=== PATIENT | female | born 1955 | race Caucasian/White ===

== ENCOUNTER 2024-03-30 10:29 | Outpatient (AMB) | payer OTHER, SELFPAY ==
--- NOTE | 2024-03-30 10:32 | MHC.OFFVIS ---
Vital Signs 03/30/24 10:34 Height 5 ft 4.5 in Weight 170 lb 13.732 oz BMI 28.9 BP 128/82 Blood Pressure Location Lt brachial Position Sitting Pulse 68 Pulse Source Doppler Pulse Oximetry (%) 100 Oxygen Delivery Method Room Air Intake Visit Reasons: sleep apnea Allergies aspirin Allergy (Intermediate, Verified 03/30/24 10:52) Unknown montelukast [From Singulair] Allergy (Intermediate, Verified 03/30/24 10:52) Unknown NSAIDS (Non-Steroidal Anti-Inflamma Allergy (Intermediate, Verified 03/30/24 10:52) Canker Sores prochlorperazine [From Compazine] Allergy (Intermediate, Verified 03/30/24 10:42) Unknown cough syrup with codeine Allergy (Intermediate, Uncoded 03/30/24 10:42) Vomiting HPI HPI sleep apnea: Details: 68-year-old lady, nonsmoker, with underlying history of obstructive sleep apnea diagnosed approximately 20 years prior and treated with a jaw advancement device, now presents for re-evaluation as patient states that she has gained approximately 20 lb since her last sleep study with worsening symptoms. She is also complain of partially treated bronchitic symptoms. 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 [facility] Social History (Updated 03/30/24 @ 10:47 by Noreen Rico [facility]) Patient Tobacco Use Status: Never used Tobacco Review of Systems Const Denies daytime sleepiness, Denies excessive sweating, Denies fatigue, Denies fever(s), Reports lethargy, Reports malaise, Denies night sweats, Denies snoring and Denies weight loss Eyes Denies blurry vision and Denies itchy eyes ENT Denies nasal congestion, Denies post nasal drip, Denies sinus pain, Denies sinus pressure and Denies other ( Thrush) Card Denies chest pain, Denies pedal edema, Denies dyspnea, Denies orthopnea and Denies paroxysmal nocturnal dyspnea Resp Denies cough, Denies hemoptysis, Denies excessive phlegm production, Denies dyspnea, Denies snoring and Denies wheezing GI Denies abdominal pain and Denies heartburn Musc Denies myalgias, Denies arthralgias and Denies joint swelling Skin/Breast Denies rash Neuro Denies memory loss and Denies seizure-like activity Psych Denies abnormal sleep pattern, Denies anxiety and Denies memory loss Endo Denies excessive sweating, Denies fatigue and Denies heat intolerance Santi/Lymph Denies easy bruising Aller/Immun Denies itchy eyes, Denies seasonal rhinorrhea and Denies wheezing Physical Exam Vital Signs: Last Vital Signs Pulse 68 03/30/24 10:34 BP 128/82 03/30/24 10:34 Pulse Ox 100 03/30/24 10:34 Oxygen Delivery Method Room Air 03/30/24 10:34 BMI result Body Mass Index 28.9 Const General: no acute distress and alert Nutritional Appearance: not obese Orientation/consciousness: Other orientation findings ( oriented) HEENT Head: Yes atraumatic Eyes General: appearance normal, both eyes and all related structures Sclerae: sclerae normal EOM: EOMs intact bilaterally Neck Neck: Yes supple Lymphatic: no lymphadenopathy noted Resp Effort & Inspection: normal respiratory effort and no use of accessory muscles Auscultation: clear to auscultation bilaterally Cardio Rate: regular rate Rhythm: regular rhythm Heart sounds: no gallops, no murmurs and no rubs Skin General skin exam: other ( warm) Extrem General: No clubbing, No cyanosis and No edema Assessment & Plan Assessment & Plan (1) Bronchitis: Code(s): J40 - Bronchitis, not specified as acute or chronic Category: Medical Plan: Partial response to initial treatment with Z-Paolo and prednisone course. Will treat with a course of Augmentin. (2) RAFFI (obstructive sleep apnea): Code(s): G47.33 - Obstructive sleep apnea (adult) (pediatric) Category: Medical Plan: Underlying obstructive sleep apnea previously controlled with jaw advancement device, now with worsening symptoms. [place] Sleepiness Scale score of 15. Will obtain home sleep study. Orders: Orders RT home sleep study Today G47.33 - Obstructive sleep apnea (adult) (pediatric) Medications: New amoxicillin-pot clavulanate 875-125 mg 1 tab PO BID 20 tabs 0RF Coding Level of Care Code New Pt Level 4 (83280) Diagnoses Bronchitis J40 RAFFI (obstructive sleep apnea) G47.33
[2024-03-30 10:34] VITALS: BP 128/82; PULSE 68; O2SAT 100; BMI 28.9
--- OUTSIDE RECORDS SUMMARY | 2024-03-30 11:47 | XMS_ITS | Continuity of Care Document ---
Author Organization [facility] Address [address] [place] [phone]- Care Team Providers Care Wire Lather Name Role Phone Polly NAYLOR, Solange Shaver Primary Care Physici an Encounter [facility] Date(s): 02/25/24 - 03/26/24 [facility] [address] [place] [phone]- Encounter Type: Triage Allergies, Adverse Reactions, Alerts Substance Criticality Severity Reaction Reaction Severity Status codeine VOMITING Active Singulair Active Compazine Active Medications Albuterol (Eqv-ProAir HFA) 90 mcg/inh inhalation aerosol 8 Gm, 0 Refill(s), INHALE 2 PUFFS INTO THE LUNGS EVERY 6 HOURS NEEDED (WHEEZING)., 0 Refills, 12/09/23 9:24:00 AM EDT, Partial fill upon patient request if the prescription is for a schedule II opioid drug. Start Date: 12/09/23 Status: Ordered Repeat number: 1 amoxicillin 500 mg oral capsule See Instructions, 1 capsule By Mouth 3 times a day Taken normally prior to Dental Work, 0 Refills, Maintenance, 01/08/24 9:51:00 AM EDT, Partial fill upon patient request if the prescription is for aschedule II opioid drug. Start Date: 01/08/24 Status: Ordered Repeat number: 1 apixaban 5 mg oral tablet 1 tablet = 5 mg, By Mouth, 2 times a day, # 60 tablet, 0 Refills, Maintenance, 12/28/23 12:31:00 AMEDT, Tablet, [facility]/pharmacy #[id number], Partial fill upon patient request if the prescription is for a schedule II opioid drug., 163, cm, 12/27/23 20:59:00 EDT, Height, 75, kg, 12/27/23 22:39:00 EDT, Dry Weight Start Date: 12/28/23 Stop Date: 04/24/24 Status: Ordered Quantity: 60.0 Unit: tablet Repeat number: 1 azelastine 0.05% ophthalmic solution 1 drops, 2 times a day, PRN Allergies in Eyes, 0 Refills, Maintenance, 12/09/23 9:41:00 AM EDT, Partial fill upon patient request if the prescription is for a schedule II opioid drug. Start Date: 12/09/23 Status: Ordered Repeat number: 1 benzonatate 200 mg oral capsule 1 capsule = 200 mg, By Mouth, 3 times a day, PRN as needed for cough, for 7 days, # 21 capsule, 0 Refills, Acute 04/01/24 12:14:00 PM EST, 03/25/24 12:14:00 PM EST, Capsule, [facility]/pharmacy #[id number], Partialfill upon patient request if the prescription is for a schedule II opioid drug., 163, cm, 03/25/24 11:23:00 EST, Height, 75, kg, 03/19/24 14:49:00 EST, Dry Weight Start Date: 03/25/24 Stop Date: 04/01/24 Status: Ordered Quantity: 21.0 Unit: capsule Repeat number: 1 Indication: Acute cough duloxetine 60 mg oral enteric coated capsule 1 capsule = 60 mg, By Mouth, Daily at bedtime, 90 capsule, 0 Refill(s) OTC, 0 Refills, 12/09/23 9:24:00 AM EDT, Partial fill upon patient request if the prescription is for a schedule II opioid drug. Start Date: 12/09/23 Status: Ordered Repeat number: 1 famciclovir 250 mg oral tablet 1 tablet = 250 mg, By Mouth, Daily at bedtime, 180 tablet, 0 Refill(s) Prescribed by Eye DrManuel for Herpes in R eye, 0 Refills, 12/09/23 9:24:00 AM EDT, Partial fill upon patient request if the prescription is for a schedule II opioid drug. Start Date: 12/09/23 Status: Ordered Repeat number: 1 flecainide 50 mg oral tablet 50 mg, 1, tablet, By Mouth, Every 12 hours, # 60 tablet, Refills 6, Tot. Refills 6, Maintenance, 02/25/24 12:04:00 PM EST, Route to Pharmacy Electronically, [facility]/pharmacy #[id number], Partial fill upon patient request if the prescription is for a schedule II opioid drug., 163, cm, 02/11/24 11:19:00 EST, Height, 74.5, kg, 02/11/24 11:19:00 EST, Dry Weight Start Date: 02/25/24 Status: Ordered Quantity: 60.0 Unit: tablet Repeat number: 7 levothyroxine 0.137 mg oral tablet 30 each, 0 Refill(s), TAKE ONE TABLET BY MOUTH EVERY MORNING BEFORE BREAKFAST, 0 Refills, 12/09/23 9:24:00 AM EDT, Partial fill upon patient request if the prescription is for a schedule II opioid drug. Start Date: 12/09/23 Status: Ordered Repeat number: 1 magnesium glycinate = 120 mg, By Mouth, 0 Refills, Maintenance, 12/09/23 9:43:00 AM EDT, Partial fill upon patient request if the prescription is for a schedule II opioid drug. Start Date: 12/09/23 Status: Ordered Repeat number: 1 Metoprolol Succinate ER 25 mg oral tablet, extended release 0.5, tablet, By Mouth, Daily, INSTR:DOSE IS 12.5 MG DAILY, # 15 tablet, Refills 10, Tot. Refills 10, Maintenance, 02/16/24 8:07:00 AM EST, Route to Pharmacy Electronically, [facility]/pharmacy #[id number], 163, cm, 02/11/24 11:19:00 EST, Height, 74.5, kg, 02/11/24 11:19:00 EST, Dry Weight Start Date: 02/16/24 Status: Ordered Quantity: 15.0 Unit: tablet Repeat number: 11 pantoprazole 40 mg oral delayed release tablet 1 tablet = 40 mg, By Mouth, Daily, # 30 tablet, 0 Refills, Maintenance, 02/06/24 6:31:00 AM EST, ECTablet Start Date: 02/06/24 Status: Ordered Quantity: 30.0 Unit: tablet Repeat number: 1 Potassium Citrate By Mouth, 0 Refills, Maintenance, 12/09/23 9:42:00 AM EDT, Partial fill upon patient request if the prescription is for a schedule II opioid drug. Start Date: 12/09/23 Status: Ordered Repeat number: 1 Tylenol Extra Strength 2 tablet, By Mouth, Daily at bedtime, 0 Refills, Maintenance, 12/09/23 9:43:00 AM EDT, Partial fill upon patient request if the prescription is for a schedule II opioid drug. Start Date: 12/09/23 Status: Ordered Repeat number: 1 Xyzal 5 mg oral tablet 1 tablet = 5 mg, By Mouth, Daily before dinner, 0 Refills, Maintenance, 12/09/23 9:42:00 AM EDT, Partial fill upon patient request if the prescription is for a schedule II opioid drug. 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 Unable to tolerate cpap Social History Social History Type Response Smoking Status Never (less than 100 in lifetime) entered on: 10/27/23 Sex Sex Representation Female (finding) Patient Care team information Care Team Personnel Name: Solange Matias NP Position: [facility] PCO Associate Professional Member Role: PCP Address: [address] [place] [address]- Telecom: Care Team Related Persons Name: BERNARDINO KUMAR Insurance Providers Guarantor name: BI KUMAR Health Plan Information #: 1 Payer: MICKEY Member Number: NA Policy Number: NA Group Number: [id number]
--- OUTSIDE RECORDS SUMMARY | 2024-03-30 11:47 | XMS_ITS | Continuity of Care Document ---
Author Organization [facility] Address [address] [place] [phone]- Care Team Providers Care Lip And Gate Builder Name Role Phone Not on Staff, PCP Primary Care Physician Unavail able Encounter [facility] Date(s): 02/15/24 - 03/16/24 [facility] [address] [place] [phone]- Encounter Type: Triage Allergies, Adverse Reactions, Alerts [...] 1 capsule By Mouth 3 times a day, 0 Refills, Maintenance, 01/08/24 9:51:00 AM EDT, Partial fill upon patient request if the prescription is for a schedule II opioid drug. Start Date: 01/08/24 Status: Ordered Repeat number: 1 apixaban 5 mg oral tablet 1 tablet = 5 mg, By Mouth, 2 times a day, # 14 tablet, 0 Refills, Maintenance, 12/28/23 12:31:00 AMEDT, Tablet, [facility]/pharmacy #[id number], Partial fill upon patient request if the prescription is for a schedule II opioid drug., 163, cm, 12/27/23 20:59:00 EDT, Height, 75, kg, 12/27/23 22:39:00 EDT, Dry Weight Start Date: 12/28/23 Stop Date: 01/04/24 Status: Ordered Quantity: 14.0 Unit: tablet Repeat number: 1 azelastine 0.05% ophthalmic solution 1 drops, 2 times a day, 0 Refills, Maintenance, 12/09/23 9:41:00 AM EDT, Partial fill upon patient request if the prescription is for a schedule II opioid drug. Start Date: 12/09/23 Status: Ordered Repeat number: 1 duloxetine 60 mg oral enteric coated capsule 90 capsule, 0 Refill(s), 0 Refills, 12/09/23 9:24:00 AM EDT, Partial fill upon patient request if the prescription is for a schedule II opioid drug. Start Date: 12/09/23 Status: Ordered Repeat number: 1 famciclovir 250 mg oral tablet 180 tablet, 0 Refill(s), 0 Refills, 12/09/23 9:24:00 AM EDT, Partial fill upon patient request if the prescription is for a schedule II opioid drug. Start Date: 12/09/23 Status: Ordered Repeat number: 1 flecainide 50 mg oral tablet 50 mg, 1, tablet, By Mouth, Every 12 hours, # 60 tablet, Refills 6, Tot. Refills 6, Maintenance, 02/25/24 12:04:00 PM EST, Route to Pharmacy Electronically, [facility]/pharmacy #[id number], Partial fill upon patient request if the prescription is for a schedule II opioid drug., 163, cm, 02/11/24 11:19:00 EST, Height, 74.5, kg, 02/11/24 11:19:00 EST, Dry Weight Start Date: 02/25/24 Status: Ordered Quantity: 60.0 Unit: tablet Repeat number: 7 Flonase Allergy Relief 50 mcg/inh nasal spray 1 sprays = 50 mcg, Daily, 0 Refills, Maintenance, 12/09/23 9:42:00 AM EDT, Partial fill upon patientrequest if the prescription is for a schedule II opioid drug. Start Date: 12/09/23 Status: Ordered Repeat number: 1 levothyroxine 0.137 mg oral tablet 30 each, 0 Refill(s), TAKE ONE TABLET BY MOUTH EVERY MORNING BEFORE BREAKFAST, 0 Refills, 12/09/23 9:24:00 AM EDT, Partial fill upon patient request if the prescription is for a schedule II opioid drug. Start Date: 12/09/23 Status: Ordered Repeat number: 1 magnesium glycinate By Mouth, 0 Refills, Maintenance, 12/09/23 9:43:00 [...] 8:07:00 AM EST, Route to Pharmacy Electronically, [facility]/pharmacy #[id number], 163, cm, 02/11/24 11:19:00 EST, [...] Ordered Repeat number: 1 Tylenol Extra Strength By Mouth, Every 6 hours, 0 Refills, Maintenance, 12/09/23 9:43:00 AM EDT, [...] Date: 12/09/23 Status: Ordered Repeat number: 1 Social History Social History Type Response Smoking Status Never (less than 100 in lifetime) entered on: 10/27/23 Sex Sex Representation Female (finding) Patient Care team information Care Team Personnel Name: Not on Staff, PCP Position: S Physician (General Medicine) Member Role: PCP Care Team Related Persons Name: BERNARDINO KUMAR Insurance Providers Guarantor name: BI KUMAR [facility] Plan Information #: 1 Payer: MICKEY Member Number: NA Policy Number: NA Group Number: NA
--- OUTSIDE RECORDS SUMMARY | 2024-03-30 11:48 | XMS_ITS | Clinical Summary ---
Author Organization [facility] Address [address] [place] [address] Phone Care Team Providers Care Hand Miter Operator Name Role Phone [facility] Unavailable [phone] Reason for Visit and Chief Complaint Procedure Plan of Treatment Pending Tests Order Diagnosis Results Due Ordering P rovider Follow Up - Appointment PRN Nondisp fx of lateral malleolus of right fibula, init 07/24/23 Michelle ARITA Last Documented On 4 8:39AM ; [facility] In House X-Rays - X-Rays Ankle, right, 3 views ([id number]) Nondisp fx of lateral malleolus of right fibula, init 07/26/23 Michelle ARITA Last Documented On 4 8:39AM ; [facility] Assessments Includes: Assessments from this encounter No Assessments Recorded Medical Equipment - Implanted Devices Includes: Current Devices No Medical Equipment Recorded Medications Includes: Medications discussed during this encounter and other current Medications Current Medications (continue as prescribed) Tylenol Oral Tablet 05/13/2023 Provider: Diagnosis: Last Documented On 4 8:44AM By John Cee ; [facility] Medications Administered Includes: Administered Medications from this encounter No Administered Medications Recorded Vital Signs Includes: Vital Signs from this encounter Vital Name 07/24/2023 08:16A Blood Pressure Sitting (mmHg) 125/78 Pulse Rate-Sitting (bpm) 72 Temp-Temporal 97 Height (in) 64 Weight (lb) 162 Body Mass Index 27.8 Body Surface Area 1.8 Oxygen Saturation (%) 99 Last Documented: On 07/24/2023 8:16AM ; [facility] Results Includes: Results discussed during this encounter No Results Recorded For Specified Dates History of Present Illness Includes: History of Present Illness from this encounter No History of Present Illness Recorded Social History No Social History Recorded - Smoking Status Unknown Procedures and Surgical History Includes: Procedures from this encounter Procedures Code Diagnosis Performing Provider Service Location Service Date X-Ray Exam Of Ankle, minimum of 3 views (Right) 12826 Nondisp fx of lateral malleolus of right fibula, init Michelle ARITA [facility] 07/24/2023 Last Documented On 4 8:50AM ; [facility] Medical History Includes: Medical History addressed during this encounter No Medical History Recorded Family History Includes: Family History addressed during this encounter No Family History Recorded Review of Systems Includes: Review of Systems from this encounter Chief complaint: Follow-up right distal fibula fracture Date of injury: 05/10/2023 History of present illness: The patient is a 67-year-old female being treated none surgically for a closed nondisplaced right distal fibula fracture Chen A. Patient has been working with physical therapy 1-2 times per week. She reports mild discomfort at the end of the day after prolonged standing. She reports mild stiffness with extreme dorsiflexion. Overall she is very happy with her progress. Denies taking analgesics. She is accompanied today by her . No other complaints at this time. Physical exam: No swelling or ecchymosis about the right ankle. Nontender to palpation throughout the right ankle. 5/5 strength with dorsiflexion and plantarflexion bilateral ankles. No pain with active range of motion. Active range of motion -5 degrees plantarflexion, full dorsiflexion. Skin and neurovascular exams intact. Diagnostic imaging: Radiographic images obtained today of the right ankle 3 views are compared to those from 06/10/2023. There is a nondisplaced distal right fibular fracture Chen A with no change in alignment. Ankle joint is symmetrical in all views. Assessment: 11 weeks status post right nondisplaced distal fibula fracture Chen A Plan: Continue weightbearing as tolerated right lower extremity. Continue PT for range of motion exercises. Continue to wear good supportive shoes. Caution to avoid reinjury. May take [id number] analgesics as needed although not currently taking any. The patient may follow-up as needed. Patient and her understand and agree with the above-stated plan. This case has been discussed with Dr. Ferguson. Mental Status Includes: Mental Status from this encounter No Mental Status Recorded Functional Status Includes: Functional Status from this encounter No Functional Status Recorded Physical Exam Includes: Physical Exam from this encounter Encounters Encounter Provider Location Date Check-In Time Check-Out Time Diagnosis Procedure Michelle ARITA [facility] 8:00AM 8:32AM Insurance Includes: Active Insurance Policies Plan Name Member ID Group # Subscriber Relationship Effect willis Dates 1 - Liliana Gutierrez [id number] Kelsy Webster Self 1 - Unknown Clinical Notes Includes: Clinical Notes from this encounter * Progress note Date Encounter Last Documented by 07/24/2023 Procedure Last documented on 07/24/2023; 8:39 AM, Michelle ARITA; [facility] Physical Findings - Vitals taken 07/24/2023 08:16 am BP-Sitting 125/78 mmHg Pulse Rate-Sitting 72 bpm Temp-Temporal 97 F Height 64 in Weight 162 lbs Body Mass Index 27.8 kg/m2 Body Surface Area 1.8 m2 Oxygen Saturation 99 % Plan StartCited - Nondisp fx of lateral malleolus of right fibula, init Follow Up/Appointment: PRN In House X-Rays/X-Rays: Ankle, right, 3 views ([id number]) EndCited User Defined 4 Chief complaint: Follow-up right distal fibula fracture Date of injury: 05/10/2023 History of present illness: The patient is a 67-year-old female being treated none surgically for a closed nondisplaced right distal fibula fracture Chen A. Patient has been working with physical therapy 1-2 times per week. She reports mild discomfort at the end of the day after prolonged standing. She reports mild stiffness with extreme dorsiflexion. Overall she is very happy with her progress. Denies taking analgesics. She is accompanied today by her . No other complaints at this time. Physical exam: No swelling or ecchymosis about the right ankle. Nontender to palpation throughout the right ankle. 5/5 strength with dorsiflexion and plantarflexion bilateral ankles. No pain with active range of motion. Active range of motion -5 degrees plantarflexion, full dorsiflexion. Skin and neurovascular exams intact. Diagnostic imaging: Radiographic images obtained today of the right ankle 3 views are compared to those from 06/10/2023. There is a nondisplaced distal right fibular fracture Chen A with no change in alignment. Ankle joint is symmetrical in all views. Assessment: 11 weeks status post right nondisplaced distal fibula fracture Chen A Plan: Continue weightbearing as tolerated right lower extremity. Continue PT for range of motion exercises. Continue to wear good supportive shoes. Caution to avoid reinjury. May take [id number] analgesics as needed although not currently taking any. The patient may follow-up as needed. Patient and her understand and agree with the above-stated plan. This case has been discussed with Dr. Ferguson.
--- OUTSIDE RECORDS SUMMARY | 2024-03-30 11:48 | XMS_ITS | Clinical Summary ---
Author Organization [facility] Address [address] [place] [address] Phone Care Team Providers Care Ambulance Officer Name Role Phone [facility] Unavailable Unavailable Reason for Visit and Chief Complaint Procedure Plan of Treatment Pending Tests Order Diagnosis Results Due Ordering P andressa Follow Up - Appointment 1 Month Nondisp fx of lateral malleolus of right fibula, dona 06/10/23 Ajay Rollins MD Last Documented On 9:12AM ; [facility] Assessments Includes: Assessments from this encounter No Assessments Recorded Medical Equipment - Implanted Devices Includes: Current Devices No Medical Equipment Recorded Medications Includes: Medications discussed during this encounter and other current Medications Current Medications (continue as prescribed) Tylenol Oral Tablet 05/13/2023 Provider: Diagnosis: Last Documented On 8:44AM By John Cee ; [facility] Medications Administered Includes: Administered Medications from this encounter No Administered Medications Recorded Vital Signs Includes: Vital Signs from this encounter Vital Name 06/10/2023 09:01A Blood Pressure Sitting (mmHg) 120/64 Pulse Rate-Sitting (bpm) 76 Temp-Temporal 96.9 Height (in) 64 Weight (lb) 162 Body Mass Index 27.8 Body Surface Area 1.8 Oxygen Saturation (%) 97 Last Documented: On 06/10/2023 9:01AM ; [facility] Results Includes: Results discussed during this [...] Of Ankle, minimum of 3 views (Right) [id number] Nondisp fx of lateral malleolus of right fibula, init Ajay Rollins MD [facility] 06/10/2023 Last Documented On 4 8:10AM ; [facility], Medical History Includes: Medical History addressed during this encounter No Medical History Recorded Family History Includes: Family History addressed during this encounter No Family History Recorded Review of Systems Includes: Review of Systems from this encounter CHIEF COMPLAINT Closed nondisplaced distal right fibula fracture (Chen A) HISTORY OF PRESENT ILLNESS The patient is a 67-year-old female. She fell sustaining an injury to her right ankle. X-rays showed a Chen A nondisplaced distal right fibula fracture. She has no tenderness medially. CURRENT MEDICATION - Tylenol Oral Tablet 0 days, 0 refills PHYSICAL FINDINGS - Vitals taken 05/13/2023 08:43 am BP-Sitting 122/70 mmHg Pulse Rate-Sitting 72 bpm Temp-Temporal 97 F Height 64 in Weight 162 lbs Body Mass Index 27.8 kg/m2 Body Surface Area 1.8 m2 Oxygen Saturation 99 % Minimal to no tenderness to palpation over the distal fibula. Good range of motion of the ankle and toes. Warm well-perfused foot. Able to weight-bear out of the boot. IMAGING X-rays were taken of her right ankle in the office today. X-rays show a nondisplaced Chen A distal right fibular fracture. Her ankle joint is symmetrical in all views. IMPRESSION 1. Chen a nondisplaced distal right fibular fracture. 2. Symmetrical ankle joint all views. PLAN - Nondisp fx of lateral malleolus of right fibula, init Follow Up/Appointment: 1 Month Avoid sporting type activities for another month. Follow-up in 1 month.Wean out of the boot into a ankle stirrup Aircast inside of a sneaker. Weightbearing as tolerated.Given a prescription for therapy. Mental Status Includes: Mental Status from this encounter No Mental Status Recorded Functional Status Includes: Functional Status from this encounter No Functional Status Recorded Physical Exam Includes: Physical Exam from this encounter Encounters Encounter Provider Location Date Check-In Time Check-Out Time Diagnosis Procedure Ajay Rollins MD [facility] 06/10/19 24 8:20AM 8:55AM Insurance Includes: Active Insurance Policies Plan Name Member ID Group # Subscriber Relationship Effect willis Dates - Liliana Gutierrez [id number] Kelsy Webster Self 1 - Unknown Clinical Notes Includes: Clinical Notes from this encounter * Progress note Date Encounter Last Documented by 06/10/2023 Procedure Last documented on 06/10/2023; 9:12 AM, Ajay Rollins MD; [facility], Physical Findings - Vitals taken 06/10/2023 09:01 am BP-Sitting 120/64 mmHg Pulse Rate-Sitting 76 bpm Temp-Temporal 96.9 F Height 64 in Weight 162 lbs Body Mass Index 27.8 kg/m2 Body Surface Area 1.8 m2 Oxygen Saturation 97 % Plan StartCited - Nondisp fx of lateral malleolus of right fibula, init Follow Up/Appointment: 1 Month EndCited User Defined 4 CHIEF COMPLAINT Closed nondisplaced distal right fibula fracture (Chen A) HISTORY OF PRESENT ILLNESS The patient is a 67-year-old female. She fell sustaining an injury to her right ankle. X-rays showed a Chen A nondisplaced distal right fibula fracture. She has no tenderness medially. CURRENT MEDICATION - Tylenol Oral Tablet 0 days, 0 refills PHYSICAL FINDINGS - Vitals taken 05/13/2023 08:43 am BP-Sitting 122/70 mmHg Pulse Rate-Sitting 72 bpm Temp-Temporal 97 F Height 64 in Weight 162 lbs Body Mass Index 27.8 kg/m2 Body Surface Area 1.8 m2 Oxygen Saturation 99 % Minimal to no tenderness to palpation over the distal fibula. Good range of motion of the ankle and toes. Warm well-perfused foot. Able to weight-bear out of the boot. IMAGING X-rays were taken of her right ankle in the office today. X-rays show a nondisplaced Chen A distal right fibular fracture. Her ankle joint is symmetrical in all views. IMPRESSION 1. Chen a nondisplaced distal right fibular fracture. 2. Symmetrical ankle joint all views. PLAN - Nondisp fx of lateral malleolus of right fibula, init Follow Up/Appointment: 1 Month Avoid sporting type activities for another month. Follow-up in 1 month.Wean out of the boot into a ankle stirrup Aircast inside of a sneaker. Weightbearing as tolerated.Given a prescription for therapy.
--- OUTSIDE RECORDS SUMMARY | 2024-03-30 11:48 | XMS_ITS ---
Care Plan - [facility] Created on: March 30, 2024 Kelsy Webster : 1955 Sex: Female Author Organization [facility] RONALD Aguilar Address [address] [place] [address] Phone Care Team Providers Care Water Fabricator Operator Name Role Phone [facility] Unavailable Unavailable
--- OUTSIDE RECORDS SUMMARY | 2024-03-30 11:48 | XMS_ITS | Clinical Summary ---
Author Organization [facility] Address [address] [place] [id number] Care Team Providers Care Design/Animation Instructor Name Role Phone Pcp, No Primary Care Provider Unavailabl e Allergies Active Allergy Reactions Criticality Noted Date Comments Prochlorperazine Other (See Comments) 4 Lock jaw Medications Medication Sig Dispensed Refills Start Date End Date Status Misc. Devices Misc CAM Boot Dx: Fibula Fracture Length of need: PRN until follow up 1 each 05/11/2023 Active Social History Tobacco Use Types Packs/Day Years Used Date Smoking Tobacco: Never Assessed Sex and Gender Information Value Date Recorded Sex Assigned at Female 05/10/2023 9:53 PM EST Gender Identity Female 05/10/2023 9:53 PM EST Sexual Orientation Heterosexual (straight) 05/09 9:53 PM EST Last Filed Vital Signs Vital Sign Reading Time Taken Comments Blood Pressure 123/68 05/11/2023 12:41 AM EST Pulse 75 05/11/2023 12:41 AM EST Temperature 35.6 ??C (96.1 ??F) 05/10/2023 9:11 PM ES T Respiratory Rate 18 05/11/2023 12:41 AM EST Oxygen Saturation 99% 05/11/2023 12:41 AM EST Inhaled Oxygen Concentration - - Weight - - Height - - Body Mass Index - - Plan of Treatment Health Maintenance Due Date Last Done Comments Hepatitis C Virus Screening 1955 DTaP/Tdap/Td Vaccines (1 - Tdap) 1976 Mammogram 1997 Colonoscopy 2002 Pneumococcal Vaccines 50+ (1 of 1 - PCV) 10/14/2007 Zoster (Shingles) Vaccine (1 of 2) 10/14/2007 DXA Bone Density (Females,Ages 65 and older) 2022 Influenza Vaccine 10/09/2023 03/20/2021, , 02/26/2019, Additional history exists COVID-19 Vaccine ( season) 2023 01/05/2021, 05/17/2020 RSV Vaccine 60 years and older and Patients (1 - 1-dose 75+ series) 2032 Hepatitis B Vaccines Aged Out No long er eligible based on patient's age to complete this topic Care Teams Design/Animation Instructor Relationship Specialty Start Date End Date Pcp, No PCP - General General Medicine 05/10/23
--- OUTSIDE RECORDS SUMMARY | 2024-03-30 11:48 | XMS_ITS ---
Author Organization [facility] Address [address] [place] [address] Phone Care Team Providers Care Taxi Driver Name Role Phone [facility] Unavailable [phone] Plan of Treatment No Plan of Treatment Recorded Assessments Includes: Assessments for all patient encounters No Assessments Recorded Medical Equipment - Implanted Devices Includes: Current and historical Devices No Medical Equipment Recorded Medications Includes: Current and historical Medications Current Medications (continue as prescribed) Tylenol Oral Tablet 05/13/2023 Provider: Diagnosis: Last Documented On 8:44AM By John Cee ; [facility] Medications Administered Includes: Administered Medications in patient's chart No Administered Medications Recorded Vital Signs Includes: Vital Signs from 03/30/2023 through 03/30/2024 Vital Name 07/24/2023 08:16A 06/10/2023 09:01A 05/12 08:43A Blood Pressure Sitting (mmHg) 125/78 120/64 122/70 Pulse Rate-Sitting (bpm) 72 76 72 Temp-Temporal 97 96.9 97 Height (in) 64 64 64 Weight (lb) 162 162 162 Body Mass Index 27.8 27.8 27.8 Body Surface Area 1.8 1.8 1.8 Oxygen Saturation (%) 99 97 99 Last Documented: On 07/24/2023 8:16AM ; [facility] On 06/10/2023 9:01AM ; [facility] On 05/13/2023 8:43AM ; [facility] Results Includes: Results from 03/30/2023 through 03/30/2024 No Results Recorded For Specified Dates History of Present Illness History of Present Illness not supported for this document type No History of Present Illness Recorded Social History No Social History Recorded - Smoking Status Unknown Procedures and Surgical History Includes: Procedures from 03/30/2023 through 03/30/2024 Procedures Code Diagnosis Performing Provider Service Location Service Date X-Ray Exam Of Ankle, minimum of 3 views (Right) [id number] Nondisp fx of lateral malleolus of right fibula, init Michelle ARITA [facility], 07/24/2023 Last Documented On 4 8:50AM ; [facility], [facility] Ex[facility] Of Ankle, minimum of 3 views (Right) [id number] Nondisp fx of lateral malleolus of right fibula, init [facility]ay [facility]ins [facility], 06/10/2023 Last Documented On 4 8:10AM ; [facility], X-[facility] Exam Of Ankle, minimum of 3 views (Right) [id number] Nondisp fx of lateral malleolus of right fibula, init Adalberto Joseph [facility], 05/13/2023 Last Documented On 4 1:23PM ; [facility], Treatment Of Ankle Fracture (Right) [address]34 Nondisp fx of lateral malleolus of right fibula, ingiuseppe Joseph [facility], 05/13/2023 Last Documented On 4 6:12AM ; [facility], Medical History Includes: Medical History in patient's chart No Medical History Recorded Family History Includes: Family History in patient's chart No Family History Recorded Review of Systems Review of Systems not supported for this document type No Review of Systems Recorded Mental Status No Mental Status Recorded Functional Status No Functional Status Recorded Physical Exam Physical Exam not supported for this document type No Physical Exam Recorded Encounters Includes: Encounters from 03/30/2023 through 03/30/2024 Encounter Provider Location Date Check-In Time Check-Out Time Diagnosis Procedure [facility] 07/24/19 24 8:00AM 8:32AM Procedure Ajay Rollins MD [facility], 06/10/19 24 8:20AM 8:55AM Medicare New Patient Adalberto Joseph MD [facility] 05/13/19 24 8:00AM 9:29AM Insurance Includes: Active Insurance Policies Plan Name Member ID Group # Subscriber Relationship Effect willis Dates 1 - Liliana Gutierrez [id number] Kelsy Webster Self 1 - Unknown Clinical Notes Includes: Signed Clinical Notes starting from 02/17/2022 * Progress note Date Encounter Last Documented by 07/24/2023 Procedure Last documented on 07/24/2023; 8:39 AM, Michelle ARITA; [facility], Physical Findings - Vitals taken 07/24/2023 08:16 am BP-Sitting 125/78 mmHg Pulse Rate-Sitting 72 bpm Temp-Temporal 97 F Height 64 in Weight 162 lbs Body Mass Index 27.8 kg/m2 Body Surface Area 1.8 m2 Oxygen Saturation 99 % Plan StartCited - Nondisp fx of lateral malleolus of right fibula, init Follow Up/Appointment: PRN In House X-Rays/X-Rays: Ankle, right, 3 views ([id number]) EndCited User Defined 4 Chief complaint: Follow-up [...] shoes. Caution to avoid reinjury. May take [id number] analgesics as needed although not currently taking any. The patient may follow-up as needed. Patient and her understand and agree with the above-stated plan. This case has been discussed with Dr. Ferguson. * Progress note Date Encounter Last Documented by 06/10/2023 Procedure Last documented on 06/10/2023; 9:12 AM, Ajay Rollins MD; [facility], Physical Findings - Vitals taken 06/10/2023 09:01 [...] Weightbearing as tolerated.Given a prescription for therapy. * Progress note Date Encounter Last Documented by 05/13/2023 Medicare New Patient Last docume nted on 05/13/2023; 1:48 PM, Adalberto Joseph MD; [facility], Chief Complaint Closed nondisplaced distal right fibula fracture (Chen A) History of Present Illness The patient is a 67-year-old female. She fell sustaining an injury to her right ankle. X-rays showed a Chen A nondisplaced distal right fibula fracture. She has no tenderness medially she was given a splint and is being seen here today for follow-up Current Medication - Tylenol Oral Tablet 0 days, 0 refills Physical Findings - Vitals taken 05/13/2023 08:43 am BP-Sitting 122/70 mmHg Pulse Rate-Sitting 72 bpm Temp-Temporal 97 F Height 64 in Weight 162 lbs Body Mass Index 27.8 kg/m2 Body Surface Area 1.8 m2 Oxygen Saturation 99 % Some bruising noted over lateral aspect of right ankle and right foot. Tender over distal fibular fracture. No tenderness medially. Neurovascular status right lower extremity intact. OB Ultrasound X-rays were taken of her right ankle in the office today. X-rays show a nondisplaced Chen A distal right fibular fracture. Her ankle joint is symmetrical in all views. User Defined 4 1. Chen a nondisplaced distal right fibular fracture. 2. Symmetrical ankle joint all views. Plan StartCited - Nondisp fx of lateral malleolus of right fibula, init Follow Up/Appointment: 1 Month EndCited 1. Nonoperative treatment. 2. Fracture boot for comfort. 3. May ambulate full weightbearing as tolerated with fracture boot in place. 4. Encouraged range of motion of right ankle. 5. Return to office in 1 month for repeat x-rays of right ankle
--- OUTSIDE RECORDS SUMMARY | 2024-03-30 11:48 | XMS_ITS | Clinical Summary ---
Author Organization [facility] [address] [facility] lding Address [address] [place] [address] Phone Care Team Providers Care Repairer Evaporator Name Role Phone Unavailable Primary Care Provider Unavailabl e Allergies Active Allergy Reactions Criticality Noted Date Comments Codeine 09/01/2023 Montelukast 09/01/2023 Prochlorperazine 01/02/2024 Lock Jaw Medications Medication Sig Dispensed Refills Start Date End Date Status acetaminophen (TYLENOL ARTHRITIS PAIN ORAL) Take by mouth. Active albuterol sulfate (ProAir RespiClick) 90 mcg/actuation aerosol powdr breath activated Inhale 2 Puffs into the lungs every 6 hours as needed (wheezing). 11/06/2023 Active amoxicillin (AMOXIL) 500 mg capsule Take 3 capsules (1,500 mg total) by mouth. Prior to Procedures or Dentist visit Active apixaban (Eliquis) 5 mg tablet Take 1 Tablet by mouth 2 times daily. 12/29/2023 Active azelastine (OPTIVAR) 0.05 % ophthalmic solution 1 Drop 2 times daily. Active dilTIAZem XR (DILT-XR) 120 mg 24 hr capsule TAKE 1 CAPSULE EVERY DAY 12/02/2023 Active DULoxetine (CYMBALTA) [address] capsule Take 1 Capsule by mouth daily. Active famciclovir (FAMVIR) 250 mg tablet Take 250 mg by mouth daily Active fluticasone propionate (FLONASE) 50 mcg/actuation nasal spray by Nasal route. Active hydrOXYzine HCL (ATARAX) 10 mg tablet Take 1 Tablet by mouth 3 times daily as needed for Anxiety for up to 360 days. 10/29/2023 10/23/2024 Active levocetirizine (XYZAL) 5 mg tablet Take 1 Tablet by mouth every evening. Active levothyroxine (SYNTHROID, LEVOTHROID) 137 mcg tablet Take 1 Tablet by mouth daily. 12/29/2023 Active MAGNESIUM ORAL Take 120 mg by mouth. Active pantoprazole (PROTONIX) 40 mg EC tablet Take 1 Tablet by mouth daily. Active POTASSIUM ORAL Take 500 mg by mouth. Active metoprolol succinate (TOPROL-XL) 25 mg 24 hr tablet Take 0.5 tablets (12.5 mg total) by mouth 1 (one) time each day. 02/23/2024 Active flecainide (TAMBOCOR) 50 mg tablet Take 1 tablet (50 mg total) by mouth 2 (two) times a day. Active diclofenac (VOLTAREN) 1 % topical gelIndications:Knee pain Apply 1 g topically 3 (three) times a day. 30 g 2 02/27/2024 Active Active Problems Problem Noted Date Diagnosed Date History of cardiac radiofrequency ablation 02/05 Arthritis 03/19/2023 Fibromyalgia 03/19/2023 Hypoglycemia 03/19/2023 Hypothyroidism 03/19/2023 Raynaud's disease 03/19/2023 Encounters Date Type Department Care Team Description 02/27/2024 9:00 AM EST Consult Orthopedics [address] [phone] Josse Rodríguez PA Primary osteoarthritis of both knees (Primary Dx); Knee pain; H/O bilateral hip replacements; Primary osteoarthritis of both first carpometacarpal joints from Last 3 Months Immunizations Name Administration Dates Next Due Influenza trivalent, 0.5mL (Fluad) 65yo and olde r 12/19/2023 Surgical History Surgery Date Site/Laterality Comments CORNEAL TRANSPLANT Right PROCEDURE: CORNEAL TRANSPLANT TUBAL LIGATION PROCEDURE: TUBAL LIGATION KNEE ARTHROSCOPY Right PROCEDURE: KNEE ARTHROSCOPY; COMMENT: meniscal TOTAL HIP ARTHROPLASTY Right PROCEDURE: TOTAL HIP ARTHROPLASTY COLONOSCOPY PROCEDURE: COLONOSCOPY UPPER GASTROINTESTINAL ENDOSCOPY PROCEDURE: UPPER GASTROINTESTINAL ENDOSCOPY SEPTOPLASTY PROCEDURE: SEPTOPLASTY SINUS SURGERY PROCEDURE: FUNCTIONAL ENDOSCOPIC SINUS SURGERY JOINT REPLACEMENT PROCEDURE: JOINT REPLACEMENT GASTRIC BYPASS 03/23/2015 N/A PROCEDURE: GASTRIC BYPASS; COMMENT: Procedure: GASTRIC BYPASS ERIC-EN-Y LAPSCOPE LYSIS OF ADHESIONS ; Surgeon: Pardeep Denney MD; Location: [facility]; Service: Bariatric; Laterality: N/A; TOTAL HIP ARTHROPLASTY Left PROCEDURE: TOTAL HIP ARTHROPLASTY OTHER SURGICAL HISTORY PROCEDURE: IN LAPS GSTR RSTCV PX W/BYP ERIC-EN-Y LIMB <150 CM HIP ARTHROPLASTY Bilateral PROCEDURE: HISTORICAL HIP REPLACEMENT OTHER SURGICAL HISTORY PROCEDURE: IN GASTRIC RSTCV W/O BYP VERTICAL-BANDED GASTROPLY OTHER SURGICAL HISTORY PROCEDURE: IN LIG/TRNSXJ FLP TUBE ABDL/VAG APPR UNI/BI Medical History Medical History Date Comments Hyperlipidemia DX: Hyperlipidem ia MVP (mitral valve prolapse) DX: MVP (mitral valve prolapse) RAFFI on CPAP DX: RAFFI on CPAP; COMMENT: used when obese, no longer needed GERD (gastroesophageal reflu x disease) DX: GERD (gastroesophageal r eflux disease) Osteoarthritis DX: Osteoarthrit is Fibromyalgia DX: Fibromyalgia Hypothyroidism DX: Hypothyroidi sm Vitamin D deficiency DX: Vitamin D deficiency Hypothyroidism DX:Hypothyroidis m Arthritis DX:Arthritis Raynaud's disease DX:Raynaud's d isease Fibromyalgia DX:Fibromyalgia Hypoglycemia DX:Hypoglycemia History of cardiac radiofreq uency ablation 02/06/2024 History of cardiac radiofreq uency ablation 02/06/2024 Family History Medical History Relation Name Comments Uterine cancer Aunt pt unsure if ovarian or uterine Drug abuse Brother cause of Mental illness Brother Deep vein thrombosis Daughter 1 HIV Daughter 1 No Known Problems Daughter 2 Colon cancer Father Kidney failure Father Skin cancer Father No Known Problems Maternal Grandfather Uterine cancer Maternal Grandmother Diabetes Mother Hyperlipidemia Mother Hypertension Mother Uterine cancer Mother pt unsure if ovarian or uterine Uterine cancer Mother's Sister No Known Problems Paternal Grandfather No Known Problems Paternal Grandmother Breast cancer Neg Hx Cancer of Small Bowel Neg Hx Kidney cancer Neg Hx Malig Hyperthermia Neg Hx Ovarian cancer Neg Hx Pancreatic cancer Neg Hx Relation Name Status Comments Aunt Alive Brother Daughter 1 Alive Daughter 2 Alive Father Maternal Grandfather Maternal Grandmother Mother Mother's Sister Paternal Grandfather Paternal Grandmother Social History Tobacco Use Types Packs/Day Years Used Date Smoking Tobacco: Never Smokeless Tobacco: Never Tobacco Cessation:Counseling Given: Not Answered Alcohol Use Standard Drinks/Week Comments Yes 0 (1 standard drink = 0.6 oz pur e alcohol) Sex and Gender Information Value Date Recorded Sex Assigned at Not on file Gender Identity Not on file Sexual Orientation Not on file Job Start Date Occupation Industry Not on file Not on file Not on file Obstetrics History Last Filed Vital Signs Vital Sign Reading Time Taken Comments Blood Pressure 90/60 01/02/2024 11:35 AM EDT Pulse 65 01/02/2024 11:35 AM EDT Temperature - - Respiratory Rate 14 02/27/2024 9:03 AM EST Oxygen Saturation - - Inhaled Oxygen Concentration - - Weight 79.4 kg (175 lb) 02/27/2024 9:03 AM EST Height 162.6 cm (5' 4 ) 02/27/2024 9:03 AM EST Body Mass Index 30.04 02/27/2024 9:03 AM EST Plan of Treatment Upcoming Encounters Date Type Department Care Team (Late st Contact Info) Description 04/07/2024 11:15 AM EST Office Visit Endocrinology - [address] [phone] Twyla French MD [address] [place] [phone] 04/29/2024 9:30 AM EST Office Visit Orthopedics - [address] [phone] Josse Rodríguez PA [address] [place] [address] Health Maintenance Due Date Last Done Comments Zoster Vaccines (1 of 2) 10/14/2007 Pneumococcal Vaccine: 65+ Years (2 of 2 - PCV) 2022 02/27/2006 Cholesterol Screening (Lipid Panel) 10/03/2023 Depression Screening 10/03/2023 Falls Risk Assessment 10/03/2023 Medicare Annual Wellness Visit 10/03/2023 Osteoporosis Screening (Bone Density Screening) 10/03/2023 Social Influencers of Health Screening 10/03/2023 COVID-19 Vaccine (1 - 2023-2 5 season) 2023 Colorectal Cancer Screening: FIT-DNA (Cologuard) 04/24/2024 04/24/2021, 04/24/2021 DTaP,Tdap,and Td Vaccines (2 - Td or Tdap) 08/15/2024 08/15/2014 TSH Level 10/22/2024 10/23/2023, 09/01/2023, 10/02/2022 Breast Cancer Screening 12/31/2025 01/01/20, 04/06/2019 RSV Immunization Patients 60 + Years Old (1 - 1-dose 75+ series) 2032 Hepatitis C Screening Completed 09/08/2012 Influenza Vaccine Completed 12/19/2023, 02/06/2015 HIB Vaccines Aged Out No longer eligi ble based on patient's age to complete this topic HPV Vaccines Aged Out No longer eligi ble based on patient's age to complete this topic Hepatitis A Vaccines Aged Out No long er eligible based on patient's age to complete this topic Hepatitis B Vaccines Aged Out No long er eligible based on patient's age to complete this topic IPV Vaccines Aged Out No longer eligi ble based on patient's age to complete this topic MMR Vaccines Aged Out No longer eligi ble based on patient's age to complete this topic Meningococcal ACWY Vaccine Aged Out N o longer eligible based on patient's age to complete this topic RSV Immunization Patients Under 20 months Aged Out No longer eligible b ased on patient's age to complete this topic Varicella Vaccines Aged Out No longer eligible based on patient's age to complete this topic Procedures Procedure Name Priority Date/Time Associated Diagnosis Comments CHG RADEX HIPS BILATERAL WITH PELVIS MINIMUM 5 VIEWS Routine 01/02/2024 12:50 PM EDT Presence of artificial hip joint, bilateral X-RAY KNEE 4+ VIEW WITH INJURY Routine 01/02/2024 12:50 PM EDT Pain in right knee Pain in left knee Other chronic pain DEMI SCREENING DIGITAL Routine 01/01/2024 7:52 AM EDT Encounter for screening mammogram for malignant neoplasm of breast from Last 3 Months Results * CHG RADEX HIPS BILATERAL WITH PELVIS MINIMUM 5 VIEWS (01/02/2024 12:50 PM EDT) Anatomical Region Laterality Modality Magnetic Resonan ce 01/02/2024 11:5 7 AM EDT Narrative 01/02/2024 4:15 PM EDT AP view of the pelvis. Bilateral hips, 2 views of each. History status post total hip replacement bilaterally. Pain. No previous studies are available for comparison. There are bilateral total hip prosthesis with satisfactory position prosthesis components. There is demineralization of the bony structures in the region of the greater trochanter and intertrochanteric segment on the left. Alignment is satisfactory. There are bilateral soft tissue calcifications laterally to the arm femoral neck on the left and femoral head on the right. No fractures or dislocations. CONCLUSIONS: Status post bilateral total hip replacement. Soft tissue calcifications bilaterally. Bony demineralization on the left as detailed. Please correlate clinically. Procedure Note Kristen Hardy MD - 01/10/2024 AP view of the pelvis. Bilateral hips, 2 views of each. History status post total hip replacement bilaterally. Pain. No previousstudies are available for comparison. There are bilateral total hip prosthesis with satisfactory positionprosthesis components. There is demineralization of the bony structures in the region of thegreater trochanter and intertrochanteric segment on the left. Alignment is satisfactory. Thereare bilateral soft tissue calcifications laterally to the arm femoral neck on the left andfemoral head on the right. No fractures or dislocations. CONCLUSIONS: Status post bilateral total hip replacement. Soft tissuecalcifications bilaterally. Bony demineralization on the left as detailed. Pleasecorrelate clinically. Josse ARITA IMG MRI PROCEDURES * X-RAY KNEE 4+ VIEW WITH INJURY (01/02/2024 12:50 PM EDT) Anatomical Region Laterality Modality Radiographic Christina ging 01/02/2024 11:5 7 AM EDT Narrative 01/02/2024 11:32 PM EDT Bilateral knees, 4 views of each. History bilateral knee pain. There is slight narrowing of the joint spaces in the medial compartments, right more than left. There is no evidence of fractures, dislocations or destructive lesions. There is no joint effusion. CONCLUSIONS: Mild degenerative changes in the medial compartments. No fractures or dislocations. Procedure Note Kristen Hardy MD - 01/10/2024 Bilateral knees, 4 views of each. History bilateral knee pain. There is slight narrowing of the joint spaces in the medial compartments,right more than left. There is no evidence of fractures, dislocations or destructive lesions.There is no joint effusion. CONCLUSIONS: Mild degenerative changes in the medial compartments. Nofractures or dislocations. Josse ARITA IMG XR PROCEDURES * [facility] SCREENING DIGITAL (01/01/2024 7:52 AM EDT) Anatomical Region Laterality Modality Mammography 12/18/2023 10:3 9 AM EDT Narrative 01/01/2024 7:52 AM EDT [facility] Diagnostic Imaging Department [address] [place] [address] Patient: ??BI KUMAR ?/Age/Sex: 1955 - F Unit#: ??[id number] ? Location/Status: ??SPDIMAM/REG CLI ? Mnemonic/Ordering Site: ??DIGSC/SPMAM Ordering Physician: ??SANDY FUENTES MD [facility] Screening Digital - 12/18/231055 Report Status:Signed EXAM: [facility] Screening Digital EXAM DATE AND TIME: 12/18/2023 10:57 AM HISTORY: ??Annual screening COMPARISON: ??Priors unable to be obtained. TECHNIQUE: Bilateral digital breast tomosynthesis was performed in the CC and MLO projections. Computer aided detection with [employer] 7.2-H and [place] WaVE 3D 3.1 was employed. TISSUE DENSITY: b. There are scattered areas of fibroglandular density. FINDINGS: No suspicious masses, grouped microcalcifications, or areas of architectural distortion are seen. The skin and vascularity are unremarkable. ??Two biopsy markers in the left breast. IMPRESSION: No evidence of malignancy is seen. A negative mammogram in the presence of a clinically suspicious palpable abnormality does not preclude the possibility of malignancy or alter the indications for biopsy. BI-RADS: ??Category 2: Benign RECOMMENDATION(S): 1: Routine screening mammogram BILATERAL in 1 year. Dictating Physician: ??DIGNA SESAY MD Electronically Signed by: ??DIGNA SESAY MD Dic Date/Time: ??01/01/24 0750 Sign date/Time: ??01/01/24 0752 Procedure Note Digna Sesay MD - 01/10/2024 [facility] Diagnostic Imaging Department [address] [place] [id number] Patient: BI KUMARO.B./Age/Sex: 1955 - 68 - F Unit#: [id number] Location/Status: SPDIMAM/REG CLI Mnemonic/Ordering Site: [facility] Ordering Physician: SANDY FUENTES MD [facility] Screening Digital - 12/18/23 - 1056 Report Status:Signed EXAM: [facility] Screening Digital EXAM DATE AND TIME: 12/18/2023 10:57 AM HISTORY: Annual screening COMPARISON: Priors unable to be obtained. TECHNIQUE: Bilateral digital breast tomosynthesis was performed in the CCand MLO projections. Computer aided detection with iCAD Printed PieceLook 7.2-H and[employer] AI 3D 3.1 was employed. TISSUE DENSITY: b. There are scattered areas of fibroglandular density. FINDINGS: No suspicious masses, grouped microcalcifications, or areas ofarchitectural distortion are seen. The skin and vascularity are unremarkable. Twobiopsy markers in the left breast. IMPRESSION: No evidence of malignancy is seen. A negative mammogram in the presence of a clinically suspicious palpable abnormality does not preclude the possibility of malignancy or alter the indications for biopsy. BI-RADS: Category 2: Benign RECOMMENDATION(S): 1: Routine screening mammogram BILATERAL in 1 year. Dictating Physician: DIGNA SESAY MD Electronically Signed by: DIGNA SESAY MD Dic Date/Time: 01/01/24 0750 Sign date/Time: 01/01/24 0752 Sandy Cintron MD IMG BI PROCEDURES from Last 3 Months
--- OUTSIDE RECORDS SUMMARY | 2024-03-30 11:48 | XMS_ITS | Clinical Summary ---
Author Organization [facility] RONALD Aguilar Address [address] [place] [address] Phone Care Team Providers Care Belt Weaver Name Role Phone [facility] Lance Aguilar Unavailable Unavailable Reason for Visit and Chief Complaint Medicare New Patient Plan of Treatment 1. Nonoperative treatment. 2. Fracture boot for comfort. 3. May ambulate full weightbearing as tolerated with fracture boot in place. 4. Encouraged range of motion of right ankle. 5. Return to office in 1 month for repeat x-rays of right ankle - Last Documented On 05/13/2023 1:48PM ; [facility] P[facility] Tests Order Diagnosis Results Due Ordering Susie crisostomo Follow Up - Appointment 1 Month Nondisp fx of lateral malleolus of right fibula, init 05/13/23 Adalberto Joseph MD Last Documented On 4 1:48PM ; [place] [facility] Assessments Includes: Assessments from this encounter No Assessments Recorded Medical Equipment - Implanted Devices Includes: Current Devices No Medical Equipment Recorded Medications Includes: Medications discussed during this encounter and other current Medications Current Medications (continue as prescribed) Tylenol Oral Tablet 05/13/2023 Provider: Diagnosis: Last Documented On 4 8:44AM By John Cee ; [facility] Medications Administered Includes: Administered Medications from this encounter No Administered Medications Recorded Vital Signs Includes: Vital Signs from this encounter Vital Name 05/13/2023 08:43A Blood Pressure Sitting (mmHg) 122/70 Pulse Rate-Sitting (bpm) 72 Temp-Temporal 97 Height (in) 64 Weight (lb) 162 Body Mass Index 27.8 Body Surface Area 1.8 Oxygen Saturation (%) 99 Last Documented: On 05/13/2023 8:43AM ; [facility] Results Includes: Results discussed during this encounter No Results Recorded For Specified Dates History of Present Illness Includes: History of Present Illness from this encounter HPI The patient is a 67-year-old female. She fell sustaining an injury to her right ankle. X-rays showed a Chen A nondisplaced distal right fibula fracture. She has no tenderness medially she was given a splint and is being seen here today for follow-up Social History No Social History Recorded - Smoking Status Unknown Procedures and Surgical History Includes: Procedures from this encounter Procedures Code Diagnosis Performing Provider Service Location Service Date X-Ray Exam Of Ankle, minimum of 3 views (Right) 91005 Nondisp fx of lateral malleolus of right fibula, dona Joseph MD [facility] 05/13/2023 Last Documented On 4 1:23PM ; [facility] Treatment Of Ankle Fracture (Right) 24783 Nondisp fx of lateral malleolus of right fibula, dona Joseph MD [facility] 05/13/2023 Last Documented On 4 6:12AM ; [facility] Medical History Includes: Medical History addressed during this encounter No Medical History Recorded Family History Includes: Family History addressed during this encounter No Family History Recorded Review of Systems Includes: Review of Systems from this encounter 1. Chen a nondisplaced distal right fibular fracture. 2. Symmetrical ankle joint all views. Mental Status Includes: Mental Status from this encounter No Mental Status Recorded Functional Status Includes: Functional Status from this encounter No Functional Status Recorded Physical Exam Includes: Physical Exam from this encounter Encounters Encounter Provider Location Date Check-In Time Check-Out Time Diagnosis Medicare New Patient Adalberto Joseph MD [facility] 05/13/19 24 8:00AM 9:29AM Insurance Includes: Active Insurance Policies Plan Name Member ID Group # Subscriber Relationship Effect willis Dates 1 - Liliana Gutierrez [id number] Kelsy Webster Self 1 - Unknown Clinical Notes Includes: Clinical Notes from this encounter * Progress note Date Encounter Last Documented by 05/13/2023 Medicare New Patient Last docume nted on 05/13/2023; 1:48 PM, Adalberto Joseph MD; [facility] Chief Complaint Closed nondisplaced distal right fibula [...]
== END 2024-03-30 11:00 | disposition home or self-care (01) ==
PROVIDERS: PCP Nurse Practitioner Family; Visit Provider Internal Medicine Pulmonary Disease
DX: J40 Bronchitis, not specified as acute or chronic (principal); G47.33 Obstructive sleep apnea (adult) (pediatric)
CPT/HCPCS: 99204

== ENCOUNTER → 2024-05-13 09:36 | Outpatient (REF) | payer MEDICARE, SELFPAY ==
--- OUTSIDE RECORDS SUMMARY | 2024-05-13 10:58 | XMS_ITS | Continuity of Care Document ---
Author Organization [facility] Address [address] [place] [id number]- Care Team Providers Care Website Project Manager Name Role Phone Polly NAYLOR, Solange Shaver Primary Care Physici an Encounter [facility] ACCT R [id number] Date(s): 04/06/24 - 04/13/24 [facility] [address] [place] [id number]- Attending Physician: Pardeep Sanchez DO Encounter Type: Office Visit Allergies, Adverse Reactions, Alerts Substance Criticality Severity Reaction Reaction Severity Status codeine VOMITING Active Singulair Active Compazine Active Medications Albuterol (Eqv-ProAir HFA) 90 mcg/inh inhalation aerosol 2 inhalation = 180 mcg, Inhalation, Every 6 hours, PRN as needed for shortness of breath or wheezing, # 18 Gm, 1 Refills, Maintenance, 03/31/24 12:47:00 PM EST, Aerosol, [id number], Partial fill upon patient request if the prescription is for a schedule II opioid drug., 2 inhalation Inhalation Every 6 hours,PRN:as needed for shortness of breath or wheezing, 163, cm, 03/25/24 11:23:00 EST, Height, 75, kg, 03/19/24 14:49:00 EST, Dry Weight Start Date: 03/31/24 Status: Ordered Quantity: 18.0 Unit: g Repeat number: 2 Albuterol (Eqv-ProAir HFA) 90 mcg/inh inhalation aerosol 8 Gm, 0 Refill(s), INHALE 2 PUFFS INTO THE LUNGS EVERY 6 HOURS NEEDED (WHEEZING)., 0 Refills, 12/09/23 9:24:00 AM EDT, Partial fill upon patient request if the prescription is for a schedule II opioid drug. Start Date: 12/09/23 Status: Ordered Repeat number: 1 apixaban 5 mg oral tablet 1 tablet = 5 mg, By Mouth, 2 times a day, # 60 tablet, 0 Refills, Maintenance, 12/28/23 12:31:00 AMEDT, Tablet, [facility]/pharmacy #[id number], Partial fill upon patient request if the prescription is for a schedule II opioid drug., 163, cm, 12/27/23 20:59:00 EDT, Height, 75, kg, 12/27/23 22:39:00 EDT, Dry Weight Start Date: 12/28/23 Stop Date: 04/24/24 Status: Ordered Quantity: 60.0 Unit: tablet Repeat number: 1 atorvastatin 40 mg oral tablet 1 tablet = 40 mg, By Mouth, Daily, # 90 tablet, 1 Refills, Maintenance, 04/06/24 12:26:00 PM EST, Tablet, [facility]/pharmacy #[id number], Partial fill upon patient request if the prescription is for a schedule IIopioid drug., 163, cm, 04/06/24 11:53:00 EST, Height, 75, kg, 03/19/24 14:49:00 EST, Dry Weight Start Date: 04/06/24 Status: Ordered Quantity: 90.0 Unit: tablet Repeat number: 2 azelastine 0.05% ophthalmic solution 1 drops, Eyes, Both, 2 times a day, PRN for allergy symptoms, # 6 mL, 6 Refills, Maintenance, 03/31/24 12:46:00 PM EST, [facility]/pharmacy #[id number], Partial fill upon patient request if the prescription is fora schedule II opioid drug., 1 drops Eyes, Both 2 times a day,PRN:for allergy symptoms, 163, cm, 03/25/24 11:23:00 EST, Height, 75, kg, 03/19/24 14:49:00 EST, Dry Weight Start Date: 03/31/24 Status: Ordered Quantity: 6.0 Unit: mL Repeat number: 7 budesonide-formoterol 80 mcg-4.5 mcg/inh inhalation aerosol with adapter 2, puffs, Inhalation, 2 times a day, # 6.9 Gm, Refills 0, Tot. Refills 0, Maintenance, 04/03/24 11:53:00 AM EST, Aerosol, Route to Pharmacy Electronically, [id number], [facility]/pharmacy #[id number], 163, cm, 04/03/24 11:09:00 EST, Height, 75, kg, 03/19/24 14:49:00 EST, Dry Weight Start Date: 04/03/24 Status: Ordered Quantity: 6.9 Unit: g Repeat number: 1 duloxetine 60 mg oral enteric coated capsule 1 capsule = 60 mg, By Mouth, Daily at bedtime, 90 capsule, 0 Refill(s) OTC, # 90 capsule, 3 Refills, Maintenance, 03/31/24 4:11:00 PM EST, Capsule, [facility]/pharmacy #[id number], Partial fill upon patient request if the prescription is for a schedule II opioid drug., 163, cm, 03/25/24 11:23:00 EST, Height, 75,kg, 03/19/24 14:49:00 EST, Dry Weight Start Date: 03/31/24 Status: Ordered Quantity: 90.0 Unit: capsule Repeat number: 4 famciclovir 250 mg oral tablet 1 tablet = 250 mg, By Mouth, Daily at bedtime, for 90 days, # 90 tablet, 1 Refills, Acute 09/27/24 12:44:00 PM EDT, 03/31/24 12:44:00 PM EST, Tablet, [facility]/pharmacy #[id number], Partial fill upon patient request if the prescription is for a schedule II opioid drug., 163, cm, 03/25/24 11:23:00 EST, Height, 75, kg, 03/19/24 14:49:00 EST, Dry Weight Start Date: 03/31/24 Stop Date: 09/27/24 Status: Ordered Quantity: 90.0 Unit: tablet Repeat number: 2 flecainide 50 mg oral tablet 50 mg, 1, tablet, By Mouth, Every 12 hours, # 180 tablet, Refills 3, Tot. Refills 3, Maintenance, 03/31/24 12:44:00 PM EST, Route to Pharmacy Electronically, [facility]/pharmacy #[id number], Partial fill upon patient request if the prescription is for a schedule II opioid drug., 163, cm, 03/25/24 11:23:00 EST, Height, 75, kg, 03/19/24 14:49:00 EST, Dry Weight Start Date: 03/31/24 Status: Ordered Quantity: 180.0 Unit: tablet Repeat number: 4 levothyroxine 0.137 mg oral tablet 1 tablet = 137 mcg, By Mouth, Daily, 30 each, 0 Refill(s), TAKE ONE TABLET BY MOUTH EVERY MORNING BEFORE BREAKFAST, # 90 tablet, 3 Refills, Maintenance, 03/31/24 12:44:00 PM EST, Tablet, [facility]/pharmacy #[id number], Partial fill upon patient request if the prescription is for a schedule II opioid drug., 163,cm, 03/25/24 11:23:00 EST, Height, 75, kg, 03/19/24 14:49:00 EST, Dry Weight Start Date: 03/31/24 Stop Date: 03/26/25 Status: Ordered Quantity: 90.0 Unit: tablet Repeat number: 4 magnesium glycinate = 120 mg, By Mouth, [...] 8:07:00 AM EST, Route to Pharmacy Electronically, [facility]/pharmacy #[id number], 163, cm, 02/11/24 11:19:00 EST, Height, [...] with mouth device. Unable to tolerate cpap Vital Signs Most recent to oldest [Reference Range]: 1 Height 163 cm (04/06/24 11:53 AM) Weight 78.4 kg (04/06/24 11:53 AM) Oxygen Saturation [94-100 %] 100 % (04/06/24 11:53 AM) Pulse Rate [55-90 bpm] 66 bpm (04/06/24 11:53 AM) Body Mass Index [18.5-24.99 kg/m2] 29.51 kg/m2 *H* (04/06/24 11:53 AM) Blood Pressure [90-138/55-84 mm Hg] 113/ 72mm Hg (04/06/24 11:53 AM) Mode of Delivery (Oxygen) Room air (04/06/24 11:53 AM) Blood pressure sites Arm, left (04/06/24 11:53 AM) Weight Obtained Via Bed scale (04/06/24 11:53 AM) Social History Social History Type Response Smoking Status Never (less than 100 in lifetime) entered on: 10/27/23 Sex Sex Representation Female (finding) Cardiology Outpatient Note * Cherie Maza DO: PERFORM Event Display: Cardiology Note Office Authored Date: [id number] Patient: ??STACY BI ? Age:??68 Years?Sex:??Female?:??1955?? Patient Hx [facility] -??Cardiology Clinic Note ?? Primary Care Provider:??Polly NAYLOR, Solange Shaver Indication for Consult NEW ONSET AFIB FUV, History of Present Illness/Interval History This is a 68-year-old woman with hypothyroidism, fibromyalgia, Raynaud's, osteoarthritis, sleep apnea using dental appliance, exercise induced asthma and gastric bypass who presents for follow-up of atrial fibrillation. ?? She is here with her today. She reports she was seen??by EP and underwent ablation on 02/05??and she has been doing well. Denies any chest pain, chest pressure, discomfort, nausea, vomiting, palpitations, orthopnea, PND, loss of consciousness, dizziness. ?? She reports she is currently dealing with bronchitis since the ablation procedure??and placed onSymbicort. We reviewed her blood work today in detail. Review of Systems All systems reviewed and negative except for as mentioned above. Physical Exam Vitals & Measurements HR:??66??(Peripheral)?? BP:??113/72?? SpO2:??100%?? HT:??163??cm?? WT:??78.4??kg?? BMI:??29.51?? Weight lb/oz: 172 lb 13 oz General:??Alert and oriented, no acute distress. HEENT:??NCAT, EOMI, Sclera are anicteric. Moist oral mucosa. Neck:??Supple, No lymphadenopathy or thyromegaly. No JVD noted. Cardiovascular:??Regular rate and rhythm, normal S1, S2. No S3 or S4 heard. No appreciable murmurs/gallops or rubs. Respiratory:??Clear to auscultation bilaterally??no wheezing. Abdomen:??Soft, nontender, non-distended, no abnormal BS. Vascular:?? Even and symmetrical pulses bilaterally. No peripheral edema. Integumentary:??Warm. No petechiae or ecchymosis. No clubbing or cyanosis. Neurology:??No focal neurological deficits.?? Psychiatric:??Appropriate mood and affect. Normal judgement. Assessment/Plan This is a 68-year-old woman with hypothyroidism, fibromyalgia, Raynaud's, osteoarthritis, exercise induced asthma and gastric bypass who presents presents for follow-up of atiral fibrillation. She recently underwent ablation and has been doing well since with the exception of bronchitis??due to URI.??She remains in sinus rhythm by exam.??She was instructed to stay on apixaban 5 mg twice daily, flecainide 50 mg twice daily as well as metoprolol succinate 12.5 mg daily until she sees electrophysiology.?? We also discussed the results of her recent blood work completed on 04/05/2024 which revealed elevated cholesterol.?? Given her ASCVD of 6.9% moderate intensity statin is recommended.?? Will pr escribe atorvastatin 40 mg daily.?? We discussed lifestyle modifications including diet and exercise.?? She continues to be compliant with her dental device for her sleep apnea. ?? Problems: Paroxysmal atrial fibrillation ?? Recommendations: Will start atorvastatin 40 mg daily given elevated ASCVD of 6.9%. Continue on Eliquis 5 mg, flecainide and metoprolol until she sees EP. Follow-up with me in 8 months to 1 year. ? Thank you for allowing us to participate in the care of your patient. ? Patient discussed with attending spout worker, ??Jamee. ?? Cherie Maza, DO Cardiovascular Disease Fellow, PGY-6 [place] [address] ?? The above note was prepared with the help of voice recognition software. Please excuse any grammatical or spelling errors that may have occurred. ?? 30??minutes??spent on activities related to this visit including chart??and data review, telehealth time,??counseling, communication with other providers, and documentation. ? Problem List/Past Medical History Ongoing Allergic rhinitis Anticoagulated Arthritis of the hands (B/L) Atrial fibrillation Chronic GERD Fibromyalgia Hashimotos Hypothyroidism HSV of R Eye Hx of bilateral hip replacements Hx of cardiac ablation (tx of Afib) Hx of gastric bypass (2016) RAFFI Procedure/Surgical History No qualifying data available. Home Medications Aerochamber, See Instructions Albuterol (Eqv-ProAir HFA) 90 mcg/inh inhalation aerosol, 180 mcg= 2 inhalation, Inhalation, Every 6 hours, PRN, 1 refills Albuterol (Eqv-ProAir HFA) 90 mcg/inh inhalation aerosol amoxicillin 500 mg oral capsule, See Instructions apixaban 5 mg oral tablet, 5 mg= 1 tablet, By Mouth, 2 times a day azelastine 0.05% ophthalmic solution, 1 drops, Eyes, Both, 2 times a day, PRN, 6 refills budesonide-formoterol 80 mcg-4.5 mcg/inh inhalation aerosol with adapter, 2 puffs, Inhalation, 2 times a day duloxetine 60 mg oral enteric coated capsule, 60 mg= 1 capsule, By Mouth, Daily at bedtime, 3 refills famciclovir 250 mg oral tablet, 250 mg= 1 tablet, By Mouth, Daily at bedtime, 1 refills flecainide 50 mg oral tablet, 50 mg= 1 tablet, By Mouth, Every 12 hours, 3 refills fluticasone 50 mcg/inh nasal spray, 50 mcg= 1 sprays, Nares, Both, 2 times a day levothyroxine 0.137 mg oral tablet, 137 mcg= 1 tablet, By Mouth, Daily, 3 refills magnesium glycinate, 120 mg, By Mouth Metoprolol Succinate ER 25 mg oral tablet, extended release, 0.5 tablet, By Mouth, Daily, 10 refills pantoprazole 40 mg oral delayed release tablet, 40 mg= 1 tablet, By Mouth, Daily Potassium Citrate, By Mouth Tylenol Extra Strength, 2 tablet, By Mouth, Daily at bedtime Xyzal 5 mg oral tablet, 5 mg= 1 tablet, By Mouth, Daily before dinner Lab Results Cardiology Labs Blood Count & Diff?? COAG?? General Chemistry?? Cardiac?? Lipid Studies?? WBC: 4.8 x10E3/uL (04/05/24) INR: 1 (10/27/23) Sodium: 140 mmol/L (04/05/24) Bilirubin, Total: 0.4 mg/dL (04/05/24) Cholesterol:??281 mg/dL??High (04/05/24) RBC: 4.4 (04/05/24) Protime (PT): 10.9 seconds (10/27/23) Potassium: 4.2 mmol/L (04/05/24) ?? Triglycerides: 134 mg/dL (04/05/24) Hgb: 14.2 Gm/dL (04/05/24) APTT: 28.2 seconds (10/27/23) Chloride: 103 mmol/L (04/05/24) ?? HDL Cholesterol: 74 mg/dL (04/05/24) Hct: 42.3 % (04/05/24) ?? Bicarbonate Level: 22 mmol/L (04/05/24) ?? Non HDL Cholesterol:??207 mg/dL??High (04/05/24) MCV: 96 fL (04/05/24) ?? Anion Gap: 15 mmol/L (04/05/24) ?? LDL Chol Calc (NIH):??183 mg/dL??High (04/05/24) Platelet Count: 317 x10E3/uL (04/05/24) ?? Glucose Level: 91 mg/dL (04/05/24) ? Hemoglobin A1C (Monitoring):??5.7 %??High (12/12/23) ? BUN: 16 mg/dL (12/27/23) ? BUN: 15 mg/dL (04/05/24) ? Creatinine-Blood: 0.76 mg/dL (04/05/24) ? Estimated GFR Creatinine: 86 ML/MIN/1.73 M2 (04/05/24) ? Calcium: 10.1 mg/dL (04/05/24) ? Magnesium: 2 mg/dL (12/27/23) ? Protein, Total: 7.2 Gm/dL (04/05/24) ? Albumin: 4.7 Gm/dL (04/05/24) ? Alkaline Phosphatase: 89 IU/L (04/05/24) ? AST (SGOT): 26 IU/L (04/05/24) ? ALT (SGPT): 29 IU/L (04/05/24) ? Diagnostic Impression ECG ECG 12-Lead ?? 06:21:14 Please click on pdf link to open report ?? Signed By: Jabari ORDOÑEZ, Jf Bee ?? ECG 12-Lead ?? 06:21:14 Ventricular Rate: 57 BPM Atrial Rate: 57 BPM P-R Interval: 176 ms QRS Duration: 90 ms Q-T Interval: 438 ms QTC Calculation(Bazett): 426 ms P Aquilla: 71 degrees R Aquilla: -1 degrees T Aquilla: 22 degrees Sinus bradycardia Otherwise normal ECG When compared with ECG of 08-Jan-2024 09:42, No significant change was found Confirmed ?? Signed By: Jabari ORDOÑEZ, Jf Bee Stress Test NM Myocard Perf SPECT Multi ?? 08:30:00 Summary 1. Myocardial perfusion imaging is normal without any fixed or reversible perfusion defect after Regadenoson stress test. ?? 2. LV function is normal at rest and with stress, with normal wall motion and thickening. ?? 3. EKG portion of the stress test is reported separately. ?? This procedure is not being performed on this patient for preoperative evaluation for low-risk surgery within 30 days. ?? Signatures _ _ ?? Signed By: Álvaro Villanueva MD No qualifying data available. Echo Echocardiogram - Complete ?? 11:17:14 Summary The left ventricular size is normal. Left ventricular wall thickness is normal. Normal LV systolic function. Ejection fraction visually is 55-60%. There are no definite regional wall motion abnormalities. EF by 3D volume is 58%. Normal diastolic function. The aortic valve is trileaflet and normal in structure and function. There is no aortic stenosis or insufficiency. The right ventricular size and function appears grossly normal. There is a small pericardial effusion anteriorly . ?? Comparison No prior study available for comparison. ?? Signature ?? Signed By: Marni Mancuso MD * Marni Mancuso MD: PERFORM Event Display: Cardiology Note Office Authored Date: [id number] Attending Attestation: I have seen and evaluated this patient on??the day that??the fellow note was prepared. I have discussed the case and its management with the fellow and agree with the findings and plan as documented in the above note with the following modifications/additions (if any): ?? The above note was prepared with the help of voice recognition software. Please excuse any grammatical or spelling errors that may have occurred. ?? Note * Gia Bell: PERFORM Event Display: Patient Education/Instruction Authored Date: [id number] Ambulatory Adult Visit Summary [facility] [address] [place] [address] Name: BI KUMAR : 1955?? Visit: 04/06/2024 11:48?? Ambulatory Visit Instructions ?? Your Care Team Primary Care Provider Solange Matias NP? This Visit Provider Cherie Maza DO Vitals Signs Pulse Rate: 66 bpm Height: 163 cm Systolic Blood Pressure: 113 mm Hg Weight: 78.4 kg Diastolic Blood Pressure: 72 mm Hg Body Mass Index:??29.51 kg/m2??High Oxygen Saturation: 100 % Body surface area: 1.88 What to do next Instructions From Your Provider Will start atorvastatin 40 mg daily. Continue on Eliquis 5 mg, flecainide and metoprolol as prescribed.?? Follow-up with EP. Follow-up with me in 8 months to 1 year. Scheduled Follow-Up Appointments Friday 9:20 AM EDT ?? With: Solange Matias NP Where: [facility] [address] [place] [address]- Status: Pending 2024 10:45 AM EDT ?? With: Jerzy Wylie DO Where: [facility] [address] [place] [address]- Status: Pending Medications The list below reflects the information in our records and provided by you today along with any changes made during this visit. Please continue your medications until treatment is completed or stopped by your provider. If this is different from the information you have or there are other questions,please contact the prescribing provider. What How Much When Why Instructions New Atorvastatin (atorvastatin 40 mg oral tablet) 1 tab(s) Oral Daily Refills: 1 Pickup at [facility]/pharmacy #[id number] Unchanged Acetaminophen (Tylenol Extra Strength) 2 tab(s) Oral Daily at Bedtime Unchanged Albuterol (Albuterol (Eqv-ProAir HFA) 90 mcg/ inh inhalation aerosol) 2 inhalation Inhalation Every 6 hours as needed for as needed for shortness of breath or wheezing Unchanged Albuterol (Albuterol (Eqv-ProAir HFA) 90 mcg/ inh inhalation aerosol) 8 Gm, 0 Refill(s), INHALE 2 PUFFS INTO THE LUNGS EVERY 6 HOURS NEEDED (WHEEZING). ?? Unchanged Amoxicillin (amoxicillin 500 mg oral capsule) See instructions 1 capsule By Mouth 3 times a day Taken normally prior to Dental Work ?? Unchanged apixaban (apixaban 5 mg oral tablet) 1 tab(s) Oral Twice a day Duration: 30 Days Unchanged Azelastine Ophthalmic (azelastine 0.05% ophthalmic solution) 1 Drops Both eyes Twice a day as needed for for allergy symptoms Unchanged Budesonide-Formoterol (budesonide-formoterol 80 mcg-4.5 mcg/ inh inhalation aerosol with adapter) 2 puff(s) Inhalation Twice a day Unchanged Duloxetine (duloxetine 60 mg oral enteric coated capsule) 1 capsule Oral Daily at Bedtime 90 capsule, 0 Refill(s) OTC ?? Unchanged Durable Medical Equipment (Aerochamber) See instructions always use with inhaler ?? Unchanged Famciclovir (famciclovir 250 mg oral tablet) 1 tab(s) Oral Daily at Bedtime Duration: 90 Days Unchanged Flecainide (flecainide 50 mg oral tablet) 1 tab(s) Oral Every 12 hours Unchanged Fluticasone Nasal (fluticasone 50 mcg/ inh nasal spray) 1 spray(s) Nares, Both Twice a day Cough Upper respiratory infection, acute Unchanged levocetirizine (Xyzal 5 mg oral tablet) 1 tab(s) Oral Daily before dinner Unchanged Levothyroxine (levothyroxine 0.137 mg oral tablet) 1 tab(s) Oral Daily Duration: 90 Days 30 each, 0 Refill(s), TAKE ONE TABLET BY MOUTH EVERY MORNING BEFORE BREAKFAST ?? Unchanged magnesium glycinate 120 Milligram Oral Unchanged Metoprolol (Metoprolol Succinate ER 25 mg oral tablet, extended release) 0.5 tab(s) Oral Daily INSTR:DOSE IS 12.5 MG DAILY ?? Unchanged Pantoprazole (pantoprazole 40 mg oral delayed release tablet) 1 tab(s) Oral Daily Unchanged Potassium Citrate Oral Pharmacy Information [facility]/pharmacy #[id number]: [address] [place], [place] [id number] [phone] Medications and Immunizations Administered Medications Given During Visit No medications given during this visit.?? Allergies (NKA means No Known Allergies) GFRANQazine Singulair codeine??(VOMITING) Common Emergency Awareness Tips IS IT A STROKE? Act FAST and Check for these signs: FACE Does the face look uneven? ARM Does one arm drift down? SPEECH Does their speech sound strange? TIME Call at any sign of stroke ?? Heart Attack Signs Chest discomfort: Most heart attacks involve discomfort in the center of the chest and lasts more than a few minutes, or goes away and comes back. It can feel like uncomfortable pressure, squeezing, fullness or pain. Discomfort in upper body: Symptoms can include pain or discomfort in one or both arms, back, neck, jaw or stomach. Shortness of breath: With or without discomfort. Other signs: Breaking out in a cold sweat, nausea, or lightheaded. Remember, MINUTES DO MATTER. If you experience any of these heart attack warning signs, call to get immediate medical attention! ?? Smoking can increase your chances of developing chronic health problems and can cause harmful effects to other family members in your house. If you smoke, you are strongly encouraged to quit. Please call [employer] at [phone] or [phone] ([phone]) or log in to [email or web address] for referrals to smoking cessation programs. ?? The National Suicide Prevention Hotline is available 30/09 if you or someone you know needs to find a reason to keep living. By calling 1-128-595-[employer] (8863) you'll be connected to a skilled, trained counselor at a crisis center in your area. [facility] [facility] You can view and manage your care through the patient portal or by using a health care jimy of your choosing. [employer] is a website that allows you to securely view your medical information including your hospital discharge summary, office visit summaries, medications and follow-up visits. You can also request appointments, renew medications, and request access to your medical information using a health care jimy of your choosing, or just ask a question. You can enroll at [email or web address] or register during your next office visit. [facility], in keeping with [facility] guidance, no longer requires face masks for staff, patientsor visitors in most situations. Similiar to time spent indoors at other locations, there is the chance that you were exposed to repiratory viruses during your time with us (such as flu or COVID-19). If you develop symptoms concerning for a viral respiratory infection, please seek testing (and treatment if indicated) from your medical provider or home test kit. ?? Disclaimer: The information provided is of a general nature and is intended to be used in conjunction with the recommendations and advice of your health care practitioner. Every effort has been made to ensure that the information provided is accurate and complete at the time it is provided to you however, as your needs change, or, as new information becomes available, different or additional instructions may be required. ?? If you have questions, please consult with your primary care provider or pharmacist, as appropriate. This information is not intended to serve as substitution for assessment and evaluation by a qualified health care provider. If you do not have a primary care provider, you may find a [facility] by calling [employer] at [phone]. Patient Care team information Care Team Personnel Name: Polly NAYLOR, Solange Shaver Position: [facility] Associate Professional Member Role: PCP Address: [address] [place] [id number] Telecom: Care Team Related Persons Name: BERNARDINO KUMAR Insurance Providers Guarantor name: BI KUMAR Health Plan Information #: 2 Payer: [facility] Member Number: [id number] Policy Number: NA Group Number: [id number] Health Plan Information #: 1 Payer: NA Member Number: [id number] Policy Number: NA Group Number: [id number]
--- OUTSIDE RECORDS SUMMARY | 2024-05-13 10:58 | XMS_ITS | Clinical Summary ---
Author Organization [facility] RONALD Aguilar Address [address] [place] [address] Phone Care Team Providers Care Food Service Helper Name Role Phone [facility] Aguilar Unavailable Unavailable Reason for [...] - Last Documented On 05/13/2023 1:48PM ; [facility] Pending Tests Order Diagnosis Results Due Ordering Susie crisostomo Follow Up - Appointment 1 Month Nondisp fx of lateral malleolus of right fibula, init 05/13/23 Adalberto Joseph MD Last Documented On 4 1:48PM ; [place] [facility] RONALD Lockhart Assessments Includes: Assessments from this encounter No Assessments Recorded Medical Equipment - Implanted Devices Includes: Current Devices No Medical Equipment Recorded Medications Includes: Medications discussed during this encounter and other current Medications Current Medications (continue as prescribed) Tylenol Oral Tablet 05/13/2023 Provider: Diagnosis: Last Documented On 4 8:44AM By John Cee ; [facility] Medications Administered Includes: Administered Medications from this encounter No Administered Medications Recorded Vital Signs Includes: Vital Signs from this encounter Vital Name 05/13/2023 08:43A Blood Pressure Sitting (mmHg) 122/70 Pulse Rate-Sitting (bpm) 72 Temp-Temporal 97 Height (in) 64 Weight (lb) 162 Body Mass Index 27.8 Body Surface Area 1.8 Oxygen Saturation (%) 99 Last Documented: On 05/13/2023 8:43AM ; [facility] Results Includes: Results discussed during this encounter [...] Social History Recorded - Smoking Status Unknown Medical History Includes: Medical History addressed during [...] Diagnosis Medicare New Patient Adalberto Joseph MD [facility] 05/13/19 24 8:00AM 9:29AM Insurance Includes: Active Insurance Policies Plan Name Member ID Group # Subscriber Relationship Effect willis Dates 1 - [employer] [id number] Kelsy Webster Self 1 - Unknown Clinical Notes Includes: Clinical Notes from this encounter * Progress note Date Encounter Last Documented by 05/13/2023 Medicare New Patient Last docume nted on 05/13/2023; 1:48 PM, Adalberto Joseph MD; [facility] Chief Complaint Closed nondisplaced distal right fibula [...]
--- OUTSIDE RECORDS SUMMARY | 2024-05-13 10:58 | XMS_ITS | Continuity of Care Document ---
Author Organization [facility] Address [address] [place] [address]- Care Team Providers Care Paint Department Supervisor Name Role Phone Polly NAYLOR, Solange Shaver Primary Care Physici an [place] [facility] [place]s): 04/06/24 - 05/06/24 [facility] [address] [place] [address]- Attending Physician: Luis Hunter Admitting Physician: AdmtrLuis Referring Physician: Admtr, Ar8 Encounter Type: Triage Allergies, Adverse Reactions, Alerts [...] 0 Refills, Maintenance, 12/28/23 12:31:00 AMEDT, Tablet, [facility]/pharmacy #[id number], Partial fill upon patient request [...] Refills, Maintenance, 04/06/24 12:26:00 PM EST, Tablet, [facility]/pharmacy #[id number], Partial fill upon patient request [...] 6 Refills, Maintenance, 03/31/24 12:46:00 PM EST, [facility]/pharmacy #[id number], Partial fill upon patient request [...] AM EST, Aerosol, Route to Pharmacy Electronically, [id number], [facility]/pharmacy #[id number], 163, cm, 04/03/24 11:09:00 EST, Height, 75, kg, 03/19/24 14:49:00 EST, Dry Weight Start Date: 04/03/24 Status: Ordered Quantity: 6.9 Unit: g Repeat number: 1 duloxetine 60 mg oral enteric coated capsule 1 capsule = 60 mg, By Mouth, Daily at bedtime, 90 capsule, 0 Refill(s) OTC, # 90 capsule, 3 Refills, Maintenance, 03/31/24 4:11:00 PM EST, Capsule, [facility]/pharmacy #[id number], Partial fill upon patient request [...] PM EDT, 03/31/24 12:44:00 PM EST, Tablet, [facility]/pharmacy #[id number], Partial fill upon patient request [...] 12:44:00 PM EST, Route to Pharmacy Electronically, [facility]/pharmacy #[id number], Partial fill upon patient request [...] Refills, Maintenance, 03/31/24 12:44:00 PM EST, Tablet, [facility]/pharmacy #[id number], Partial fill upon patient request [...] 8:07:00 AM EST, Route to Pharmacy Electronically, [facility]/pharmacy #[id number], 163, cm, 02/11/24 11:19:00 EST, [...] Active Anticoagulated Confirmed Active Fibromyalgia Confirmed Active Gross hematuria Confirmed Active Chronic GERD Confirmed Active Hx of gastric bypass (2016) Confirmed Active Hx of cardiac ablation (tx [...] Team Personnel Name: Solange Matias NP Position: S PCO Associate Professional Member Role: PCP Address: [address] [place] [address] Telecom: Care Team Related Persons Name: BERNARDINO KUMAR Insurance Providers Guarantor name: BI STACY Health Plan Information #: 1 Payer: NA Member Number: NA Policy Number: NA Group Number: NA
--- OUTSIDE RECORDS SUMMARY | 2024-05-13 10:58 | XMS_ITS | Continuity of Care Document ---
Author Organization [facility] Address [address] [place] [address]- Care Team Providers Care Custodial Laborer Name Role Phone Polly NAYLOR, Solange Shaver Primary Care Physici an Encounter [facility] [place] Date(s): 03/31/24 - 04/30/24 [facility] [address] [place] [address]- Encounter Type: Triage Allergies, Adverse Reactions, Alerts [...] a schedule II opioid drug. Start Date: 10/1/24 Status: Ordered Repeat number: 1 apixaban 5 mg oral tablet 1 tablet = 5 mg, By Mouth, 2 times a day, # 60 tablet, 0 Refills, Maintenance, 12/28/23 12:31:00 AMEDT, Tablet, [id number], Partial fill upon patient request [...] Refills, Maintenance, 04/06/24 12:26:00 PM EST, Tablet, [facility]/pharmacy #[id number], Partial fill upon patient request [...] 6 Refills, Maintenance, 03/31/24 12:46:00 PM EST, [facility]/pharmacy #[id number], Partial fill upon patient request [...] AM EST, Aerosol, Route to Pharmacy Electronically, [id number], [facility]/pharmacy #[id number], 163, cm, 04/03/24 11:09:00 EST, Height, 75, kg, 03/19/24 14:49:00 EST, Dry Weight Start Date: 04/03/24 Status: Ordered Quantity: 6.9 Unit: g Repeat number: 1 duloxetine 60 mg oral enteric coated capsule 1 capsule = 60 mg, By Mouth, Daily at bedtime, 90 capsule, 0 Refill(s) OTC, # 90 capsule, 3 Refills, Maintenance, 03/31/24 4:11:00 PM EST, Capsule, [facility]/pharmacy #[id number], Partial fill upon patient request [...] PM EDT, 03/31/24 12:44:00 PM EST, Tablet, [facility]/pharmacy #[id number], Partial fill upon patient request [...] 12:44:00 PM EST, Route to Pharmacy Electronically, [facility]/pharmacy #0838, Partial fill upon patient request [...] Refills, Maintenance, 03/31/24 12:44:00 PM EST, Tablet, [facility]/pharmacy #[id number], Partial fill upon patient request [...] 8:07:00 AM EST, Route to Pharmacy Electronically, [facility]/pharmacy #[id number], 163, cm, 02/11/24 11:19:00 EST, [...] Team Personnel Name: Solange Matias NP Position: [facility] PCO Associate Professional Member Role: PCP Address: [address] [place] [id number] Telecom: Care Team Related Persons Name: BERNARDINO KUMAR Insurance Providers Guarantor name: BI KUMAR Health Plan Information #: 1 Payer: NA Member Number: NA Policy Number: NA Group Number: NA
--- OUTSIDE RECORDS SUMMARY | 2024-05-13 10:58 | XMS_ITS | Continuity of Care Document ---
Author Organization [facility] Address [address] [place] [address]- Care Team Providers Care Blood Or Blood Bank Technician Name Role Phone Polly NAYLOR, Solange Shaver Primary Care Physici an [place] [facility] [id number] Date(s): 12/31/23 - 04/17/24 [facility] [address] [place] [address]- Attending Physician: Pawan Mejia MD Admitting Physician: Pawan Mejia MD Referring Physician: Not on Staff, Referring MD Encounter Type: Pre-OutPatient One Time Allergies, Adverse Reactions, Alerts Substance Criticality Severity Reaction Reaction Severity Status codeine VOMITING Active Singulair Active Compazine Active Medications Albuterol (Eqv-ProAir HFA) 90 mcg/inh inhalation aerosol 2 inhalation = 180 mcg, Inhalation, Every 6 hours, PRN as needed for shortness of breath or wheezing, # 18 Gm, 1 Refills, Maintenance, 03/31/24 12:47:00 PM EST, Aerosol, [id number], Partial fill upon patient request if the [...] Refills, Maintenance, 04/06/24 12:26:00 PM EST, Tablet, [facility], Partial fill upon patient [...] 6 Refills, Maintenance, 03/31/24 12:46:00 PM EST, [facility], Partial fill upon patient request [...] AM EST, Aerosol, Route to Pharmacy Electronically, [id number], [facility]/pharmacy #0838, 163, cm, 04/03/24 11:09:00 EST, Height, 75, kg, 03/19/24 14:49:00 EST, Dry Weight Start Date: 04/03/24 Status: Ordered Quantity: 6.9 Unit: g Repeat number: 1 duloxetine 60 mg oral enteric coated capsule 1 capsule = 60 mg, By Mouth, Daily at bedtime, 90 capsule, 0 Refill(s) OTC, # 90 capsule, 3 Refills, Maintenance, 03/31/24 4:11:00 PM EST, Capsule, [facility]/pharmacy #0838, Partial fill upon patient request if [...] PM EDT, 03/31/24 12:44:00 PM EST, Tablet, [facility]/pharmacy #0838, Partial fill upon patient request if [...] 12:44:00 PM EST, Route to Pharmacy Electronically, [facility], Partial fill upon patient request [...] Refills, Maintenance, 03/31/24 12:44:00 PM EST, Tablet, [facility]/pharmacy #0838, Partial fill upon patient request if [...] 8:07:00 AM EST, Route to Pharmacy Electronically, [facility]/pharmacy #[id number], 163, cm, 02/11/24 11:19:00 EST, Height, [...] Team Personnel Name: Solange Matias NP Position: [facility] PCO Associate Professional Member Role: PCP Address: [address] [place] [address] Telecom: Care Team Related Persons Name: BERNARDINO KUMAR Insurance Providers Guarantor name: BI STACY Health Plan Information #: 1 Payer: NA Member Number: [id number] Policy Number: NA Group Number: [id number] Health Plan Information #: 2 Payer: NA Member Number: [id number] Policy Number: NA Group Number: NA
--- OUTSIDE RECORDS SUMMARY | 2024-05-13 10:58 | XMS_ITS | Continuity of Care Document ---
Author Organization [facility] Address [address] [place] [address]- Care Team Providers Care Pharmacovigilance Specialist Name Role Phone Polly NAYLOR, Solange Shaver Primary Care Physici an Encounter [facility] [place] Date(s): 03/31/24 - 04/30/24 [facility] [address] [place] [address]- Encounter Type: Triage Allergies, Adverse Reactions, Alerts [...] 0 Refills, Maintenance, 12/28/23 12:31:00 AMEDT, Tablet, [facility]/pharmacy #0838, Partial fill upon patient request [...] Refills, Maintenance, 04/06/24 12:26:00 PM EST, Tablet, [facility]/pharmacy #0838, Partial fill upon patient request [...] 6 Refills, Maintenance, 03/31/24 12:46:00 PM EST, [facility]/pharmacy #0838, Partial fill upon patient request [...] AM EST, Aerosol, Route to Pharmacy Electronically, [id number], [facility]/pharmacy #0838, 163, cm, 04/03/24 11:09:00 EST, Height, 75, kg, 03/19/24 14:49:00 EST, Dry Weight Start Date: 04/03/24 Status: Ordered Quantity: 6.9 Unit: g Repeat number: 1 duloxetine 60 mg oral enteric coated capsule 1 capsule = 60 mg, By Mouth, Daily at bedtime, 90 capsule, 0 Refill(s) OTC, # 90 capsule, 3 Refills, Maintenance, 03/31/24 4:11:00 PM EST, Capsule, [facility]/pharmacy #0838, Partial fill upon patient request [...] PM EDT, 03/31/24 12:44:00 PM EST, Tablet, [facility]/pharmacy #0838, Partial fill upon patient request [...] 12:44:00 PM EST, Route to Pharmacy Electronically, [facility]/pharmacy #0838, Partial fill upon patient request [...] Refills, Maintenance, 03/31/24 12:44:00 PM EST, Tablet, [facility]/pharmacy #0838, Partial fill upon patient request [...] 8:07:00 AM EST, Route to Pharmacy Electronically, [facility]/pharmacy #0838, 163, cm, 02/11/24 11:19:00 EST, [...] Team Personnel Name: Solange Matias NP Position: [facility] PCO Associate Professional Member Role: PCP Address: [address] [place] [address] Telecom: Care Team Related Persons Name: BERNARDINO KUMAR Insurance Providers Guarantor name: BI KUMAR Health Plan Information #: 1 Payer: MICKEY Member Number: NA Policy Number: NA Group Number: NA
--- OUTSIDE RECORDS SUMMARY | 2024-05-13 10:58 | XMS_ITS | Continuity of Care Document ---
Author Organization [facility] Address [address] [place] [address]- Care Team Providers Care Greenskeeper Supervisor Name Role Phone Polly NAYLOR, Solange Shaver Primary Care Physici an Encounter [facility] [place] Date(s): 04/07/24 - 05/07/24 [facility] [address] [place] [address]- Encounter Type: Triage Allergies, Adverse Reactions, Alerts [...] 0 Refills, Maintenance, 12/28/23 12:31:00 AMEDT, Tablet, [facility]/pharmacy #0838, Partial fill upon patient request [...] Refills, Maintenance, 04/06/24 12:26:00 PM EST, Tablet, [facility]/pharmacy #0838, Partial fill upon patient request [...] 6 Refills, Maintenance, 03/31/24 12:46:00 PM EST, [facility]/pharmacy #0838, Partial fill upon patient request [...] AM EST, Aerosol, Route to Pharmacy Electronically, [id number], [facility]/pharmacy #0838, 163, cm, 04/03/24 11:09:00 EST, Height, 75, kg, 03/19/24 14:49:00 EST, Dry Weight Start Date: 04/03/24 Status: Ordered Quantity: 6.9 Unit: g Repeat number: 1 duloxetine 60 mg oral enteric coated capsule 1 capsule = 60 mg, By Mouth, Daily at bedtime, 90 capsule, 0 Refill(s) OTC, # 90 capsule, 3 Refills, Maintenance, 03/31/24 4:11:00 PM EST, Capsule, [facility]/pharmacy #0838, Partial fill upon patient request [...] PM EDT, 03/31/24 12:44:00 PM EST, Tablet, [facility]/pharmacy #0838, Partial fill upon patient request [...] 12:44:00 PM EST, Route to Pharmacy Electronically, [facility]/pharmacy #0838, Partial fill upon patient request [...] Refills, Maintenance, 03/31/24 12:44:00 PM EST, Tablet, [facility]/pharmacy #0838, Partial fill upon patient request [...] 8:07:00 AM EST, Route to Pharmacy Electronically, [facility]/pharmacy #0838, 163, cm, 02/11/24 11:19:00 EST, [...] Team Personnel Name: Solange Matias NP Position: [facility] PCO Associate Professional Member Role: PCP Address: [address] [place] [address] Telecom: Care Team Related Persons Name: BERNARDINO KUMAR Insurance Providers Guarantor name: BI KUMAR Health Plan Information #: 1 Payer: NA Member Number: NA Policy Number: NA Group Number: NA
--- OUTSIDE RECORDS SUMMARY | 2024-05-13 10:58 | XMS_ITS | Continuity of Care Document ---
Author Organization [facility] Address [address] [place] [address]- Care Team Providers Care Substance Abuse Technician Name Role Phone Polly NAYLOR, Solange Shaver Primary Care Physici an [place] [facility] [place] [id number] Date(s): 04/03/24 - 05/03/24 [facility] [address] [place] [address]- Attending Physician: Luis Hunter Admitting Physician: AdmtrLuis [...] Maintenance, 03/31/24 12:47:00 PM EST, Aerosol, [facility], Partial fill upon patient request if the [...] Refills, Maintenance, 04/06/24 12:26:00 PM EST, Tablet, [facility]/pharmacy #0838, Partial fill upon patient request [...] 6 Refills, Maintenance, 03/31/24 12:46:00 PM EST, [facility]/pharmacy #0838, Partial fill upon patient request [...] AM EST, Aerosol, Route to Pharmacy Electronically, [id number], [facility]/pharmacy #0838, 163, cm, 04/03/24 11:09:00 EST, Height, 75, kg, 03/19/24 14:49:00 EST, Dry Weight Start Date: 04/03/24 Status: Ordered Quantity: 6.9 Unit: g Repeat number: 1 duloxetine 60 mg oral enteric coated capsule 1 capsule = 60 mg, By Mouth, Daily at bedtime, 90 capsule, 0 Refill(s) OTC, # 90 capsule, 3 Refills, Maintenance, 03/31/24 4:11:00 PM EST, Capsule, [facility]/pharmacy #0838, Partial fill upon patient request [...] PM EDT, 03/31/24 12:44:00 PM EST, Tablet, [facility]/pharmacy #0838, Partial fill upon patient request [...] 12:44:00 PM EST, Route to Pharmacy Electronically, [facility]/pharmacy #0838, Partial fill upon patient request [...] Refills, Maintenance, 03/31/24 12:44:00 PM EST, Tablet, [facility]/pharmacy #0838, Partial fill upon patient request [...] 8:07:00 AM EST, Route to Pharmacy Electronically, [facility]/pharmacy #0838, 163, cm, 02/11/24 11:19:00 EST, [...] Personnel Name: Polly NAYLOR, Solange Shaver Position: S PCO Associate Professional Member Role: PCP Address: [address] [place] [address] Telecom: Care Team Related Persons Name: BERNARDINO KUMAR Insurance Providers Guarantor name: BI STACY Health Plan Information #: 1 Payer: NA Member Number: NA Policy Number: NA Group Number: NA
--- OUTSIDE RECORDS SUMMARY | 2024-05-13 10:58 | XMS_ITS | Continuity of Care Document ---
Author Organization [facility] Address [address] [place] [address]- Care Team Providers Care Concrete Vault Maker Name Role Phone Polly NAYLOR, Solange Shaver Primary Care Physici an [place] [facility] [place]/29/24 [facility] [address] [place] [address]- Encounter Type: Triage Allergies, Adverse Reactions, Alerts [...] Refills, Maintenance, 04/06/24 12:26:00 PM EST, Tablet, [facility]/pharmacy #0838, Partial fill upon patient request [...] 6 Refills, Maintenance, 03/31/24 12:46:00 PM EST, [facility]/pharmacy #0838, Partial fill upon patient request [...] AM EST, Aerosol, Route to Pharmacy Electronically, [id number], [facility]/pharmacy #0838, 163, cm, 04/03/24 11:09:00 EST, Height, 75, kg, 03/19/24 14:49:00 EST, Dry Weight Start Date: 04/03/24 Status: Ordered Quantity: 6.9 Unit: g Repeat number: 1 duloxetine 60 mg oral enteric coated capsule 1 capsule = 60 mg, By Mouth, Daily at bedtime, 90 capsule, 0 Refill(s) OTC, # 90 capsule, 3 Refills, Maintenance, 03/31/24 4:11:00 PM EST, Capsule, [facility]/pharmacy #0838, Partial fill upon patient request [...] PM EDT, 03/31/24 12:44:00 PM EST, Tablet, [facility]/pharmacy #0838, Partial fill upon patient request [...] 12:44:00 PM EST, Route to Pharmacy Electronically, [facility]/pharmacy #0838, Partial fill upon patient request [...] Refills, Maintenance, 03/31/24 12:44:00 PM EST, Tablet, [facility]/pharmacy #0838, Partial fill upon patient request [...] 8:07:00 AM EST, Route to Pharmacy Electronically, [facility]/pharmacy #0838, 163, cm, 02/11/24 11:19:00 EST, [...] PCO Associate Professional Member Role: PCP Address: [address] [place] [id number] [place] Telecom: Care Team Related Persons Name: BERNARDINO KUMAR Insurance Providers Guarantor name: BI KUMAR Health Plan Information #: 1 Payer: NA Member Number: NA Policy Number: NA Group Number: NA
--- OUTSIDE RECORDS SUMMARY | 2024-05-13 10:58 | XMS_ITS | Continuity of Care Document ---
Author Organization [facility] Address [address] [place] [address]- Care Team Providers Care Water Quality Control Engineer Name Role Phone Polly NAYLOR, Solange Shaver Primary Care Physici an [place] [facility] [place] 04/30/24 [facility] [address] [place] [address]- Encounter Type: Triage Allergies, Adverse Reactions, Alerts [...] Refills, Maintenance, 04/06/24 12:26:00 PM EST, Tablet, [facility]/pharmacy #0838, Partial fill upon patient request [...] 6 Refills, Maintenance, 03/31/24 12:46:00 PM EST, [facility]/pharmacy #0838, Partial fill upon patient request [...] AM EST, Aerosol, Route to Pharmacy Electronically, [id number], [facility]/pharmacy #0838, 163, cm, 04/03/24 11:09:00 EST, Height, 75, kg, 03/19/24 14:49:00 EST, Dry Weight Start Date: 04/03/24 Status: Ordered Quantity: 6.9 Unit: g Repeat number: 1 duloxetine 60 mg oral enteric coated capsule 1 capsule = 60 mg, By Mouth, Daily at bedtime, 90 capsule, 0 Refill(s) OTC, # 90 capsule, 3 Refills, Maintenance, 03/31/24 4:11:00 PM EST, Capsule, [facility]/pharmacy #0838, Partial fill upon patient request [...] PM EDT, 03/31/24 12:44:00 PM EST, Tablet, [facility]/pharmacy #0838, Partial fill upon patient request [...] 12:44:00 PM EST, Route to Pharmacy Electronically, [facility]/pharmacy #0838, Partial fill upon patient request [...] Refills, Maintenance, 03/31/24 12:44:00 PM EST, Tablet, [facility]/pharmacy #0838, Partial fill upon patient request [...] 8:07:00 AM EST, Route to Pharmacy Electronically, [facility]/pharmacy #0838, 163, cm, 02/11/24 11:19:00 EST, [...] PCO Associate Professional Member Role: PCP Address: [address] [place] [address] Telecom: Care Team Related Persons Name: BERNARDINO KUMAR Insurance Providers Guarantor name: BI KUMAR Health Plan Information #: 1 Payer: MICKEY Member Number: NA Policy Number: NA Group Number: NA
--- OUTSIDE RECORDS SUMMARY | 2024-05-13 10:58 | XMS_ITS | Continuity of Care Document ---
Author Organization [facility] Address [address] [place] [address]- Care Team Providers Care Paint Trimmer Pipe Bowls Name Role Phone Polly NAYLOR, Solange Shaver Primary Care Physici an Encounter [facility] [place] Date(s): 03/31/24 - 04/30/24 [facility] [address] [place] [address]- Encounter Type: Triage Allergies, Adverse Reactions, Alerts [...] AM EST, Aerosol, Route to Pharmacy Electronically, [id number], [facility]/pharmacy #0838, 163, cm, 04/03/24 11:09:00 [...] Team Personnel Name: Solange Matias NP Position: [facility] PCO Associate Professional Member Role: PCP Address: [address] [place] [address] Telecom: Care Team Related Persons Name: BERNARDINO KUMAR Insurance Providers Guarantor name: BI KUMAR Health Plan Information #: 1 Payer: MICKEY Member Number: NA Policy Number: NA Group Number: NA
--- OUTSIDE RECORDS SUMMARY | 2024-05-13 10:58 | XMS_ITS | Clinical Summary ---
Author Organization [facility] Address [address] [place] [address] Phone Care Team Providers Care Medical Records Receptionist Name Role Phone [place] [facility] Unavailable [phone] Reason for Visit and Chief Complaint Procedure Plan of Treatment Pending Tests Order Diagnosis Results Due Ordering P rovider Follow Up - Appointment PRN Nondisp fx of lateral malleolus of right fibula, init 07/24/23 Michelle ARITA Last Documented On 4 8:39AM ; [facility] In House X-Rays - X-Rays Ankle, right, 3 views ([id number]) Nondisp fx of lateral malleolus of right fibula, init 07/26/23 Michelle ARITA Last Documented On 4 8:39AM ; [facility] Assessments Includes: Assessments from this encounter No Assessments Recorded Medical Equipment - Implanted Devices Includes: Current Devices No Medical Equipment Recorded Medications Includes: Medications discussed during this encounter and other current Medications Current Medications (continue as prescribed) Tylenol Oral Tablet 05/13/2023 Provider: Diagnosis: Last Documented On 4 8:44AM By John Cee ; [facility] Medications Administered Includes: Administered Medications from this encounter No Administered Medications Recorded Vital Signs Includes: Vital Signs from this encounter Vital Name 07/24/2023 08:16A Blood Pressure Sitting (mmHg) 125/78 Pulse Rate-Sitting (bpm) 72 Temp-Temporal 97 Height (in) 64 Weight (lb) 162 Body Mass Index 27.8 Body Surface Area 1.8 Oxygen Saturation (%) 99 Last Documented: On 07/24/2023 8:16AM ; [facility] Results Includes: Results discussed during this encounter [...] Of Ankle, minimum of 3 views (Right) [id number] Nondisp fx of lateral malleolus of right fibula, init Michelle ARITA [place] [facility] 07/24/2023 Last Documented On 4 8:50AM ; [facility] Medical History Includes: Medical History addressed [...] shoes. Caution to avoid reinjury. May take bgaa-hxm-nwwugib analgesics as needed although not currently taking [...] Time Check-Out Time Diagnosis Procedure Michelle ARITA [place] [facility] 8:00AM 8:32AM Insurance Includes: Active Insurance Policies Plan Name Member ID Group # Subscriber Relationship Effect willis Dates 1 - Liliana Gutierrez [id number] Kelys Webster Self 1 - Unknown Clinical Notes Includes: Clinical Notes from this encounter * Progress note Date Encounter Last Documented by 07/24/2023 Procedure Last documented on 07/24/2023; 8:39 AM, Michelle ARITA; [place] [facility] Physical Findings - Vitals taken 07/24/2023 08:16 am BP-Sitting 125/78 mmHg Pulse Rate-Sitting 72 bpm Temp-Temporal 97 F Height 64 in Weight 162 lbs Body Mass Index 27.8 kg/m2 Body Surface Area 1.8 m2 Oxygen Saturation 99 % Plan StartCited - Nondisp fx of lateral malleolus of right fibula, init Follow Up/Appointment: PRN In House X-Rays/X-Rays: Ankle, right, 3 views ([id number]) EndCited User Defined 4 Chief complaint: Follow-up [...] shoes. Caution to avoid reinjury. May take rjnm-gnc-qvpuevo analgesics as needed although not currently taking any. The patient may follow-up as needed. Patient and her understand and agree with the above-stated plan. This case has been discussed with Dr. Ferguson.
--- OUTSIDE RECORDS SUMMARY | 2024-05-13 10:58 | XMS_ITS | Clinical Summary ---
Author Organization [facility] Address [address] [place] [address] Care Team Providers Care Foxing Painter Name Role Phone Pcp, No Primary Care [...] age to complete this topic Care Teams Foxing Painter Relationship Specialty Start Date End Date Pcp, No PCP - General General Medicine 05/10/23
--- OUTSIDE RECORDS SUMMARY | 2024-05-13 10:58 | XMS_ITS | Clinical Summary ---
Author Organization [facility] [address] [facility] Address [address] [place] [address] Phone Care Team Providers Care Art Framing Manager Name Role Phone Unavailable Primary Care Provider Unavailabl e Allergies Active Allergy Reactions Criticality Noted Date Comments Codeine 09/01/2023 Montelukast 09/01/2023 Prochlorperazine 01/02/2024 Lock Jaw Medications acetaminophen (TYLENOL ARTHRITIS PAIN ORAL) Take by mouth. Activ e albuterol sulfate (ProAir RespiClick) 90 mcg/actuation aerosol powdr breath activated Inhale 2 Puffs into the lungs every 6 hours as needed (wheezing). 4 Active amoxicillin (AMOXIL) 500 mg capsule Take 3 capsules (1,500 mg total) by mouth. Prior to Procedures or Dentist visit Active apixaban (Eliquis) 5 mg tablet Take 1 Tablet by mouth 2 times daily. 4 Active azelastine (OPTIVAR) 0.05 % ophthalmic solution 1 Drop 2 times daily. Active dilTIAZem XR (DILT-XR) 120 mg 24 hr capsule TAKE 1 CAPSULE EVERY DAY 4 Active DULoxetine (CYMBALTA) [address] capsule Take 1 Capsule by mouth daily. Active famciclovir (FAMVIR) 250 mg tablet Take 250 mg by mouth daily Active fluticasone propionate (FLONASE) 50 mcg/actuation nasal spray by Nasal route. Ac tive hydrOXYzine HCL (ATARAX) 10 mg tablet Take 1 Tablet by mouth 3 times daily as needed for Anxiety for up to 360 days. 4 10/24/19 25 Active levocetirizine (XYZAL) 5 mg tablet Take 1 Tablet by mouth every evening. Active levothyroxine (SYNTHROID, LEVOTHROID) 137 mcg tablet Take 1 Tablet by mouth daily. 4 Active MAGNESIUM ORAL Take 120 mg by mouth. Active pantoprazole (PROTONIX) 40 mg EC tablet Take 1 Tablet by mouth daily. Active POTASSIUM ORAL Take 500 mg by mouth. Active metoprolol succinate (TOPROL-XL) 25 mg 24 hr tablet Take 0.5 tablets (12.5 mg total) by mouth 1 (one) time each day. Active flecainide (TAMBOCOR) 50 mg tablet Take 1 tablet (50 mg total) by mouth 2 (two) times a day. Active diclofenac (VOLTAREN) 1 % topical gelIndications: Knee pain Apply 1 g topically 3 (three) times a day. 30 g 2 Active Active Problems Problem Noted Date Diagnosed Date History of cardiac radiofrequency ablation 02/05 Arthritis 03/19/2023 Fibromyalgia 03/19/2023 Hypoglycemia 03/19/2023 Hypothyroidism 03/19/2023 Raynaud's disease 03/19/2023 Encounters Date Type Department Care Team Description 02/27/2024 9:00 AM EST Consult Orthopedics - [address] [address] Josse Rodríguez PA Primary osteoarthritis of both [...] ADHESIONS ; Surgeon: Pardeep Denney MD; [facility]; Service: Bariatric; Laterality: N/A; TOTAL HIP ARTHROPLASTY Left PROCEDURE: TOTAL HIP ARTHROPLASTY OTHER SURGICAL HISTORY PROCEDURE: TN LAPS GSTR RSTCV PX W/BYP ERIC-EN-Y LIMB <150 CM HIP ARTHROPLASTY Bilateral PROCEDURE: HISTORICAL HIP REPLACEMENT OTHER SURGICAL HISTORY PROCEDURE: TN GASTRIC RSTCV W/O BYP VERTICAL-BANDED GASTROPLY OTHER SURGICAL HISTORY PROCEDURE: TN LIG/TRNSXJ FLP TUBE ABDL/VAG APPR UNI/BI Medical [...] drink = 0.6 oz pur e alcohol) Comments No Sex and Gender Information Value Date Recorded Sex Assigned at Not on file Legal Sex Female 11:07 AM EDT Gender Identity Not on file Sexual Orientation Not on file Obstetrics History Last Filed [...] 02/27/2024 9:03 AM EST Plan of Treatment Health Maintenance Due Date Last Done Comments Pneumococcal Vaccine: 50+ Years (2 of 2 - PCV) 10/14/2007 02/27/2006 Zoster Vaccines (1 of 2) 10/14/2007 Cholesterol Screening (Lipid Panel) 10/03/2023 Depression Screening [...] patient's age to complete this topic Meningococcal B Vacine Aged Out No lo nger eligible based on patient's age to complete this topic RSV Immunization Patients Under 20 months Aged Out No longer eligible b ased on patient's age to complete this topic Varicella Vaccines Aged Out No longer eligible based on patient's age to complete this topic Procedures Procedure Name Priority Date/Time Associated Diagnosis Comments [facility] SCREENING DIGITAL Routine 01/01/2024 7:52 AM EDT Encounter for screening mammogram for malignant neoplasm of breast from Last 3 Months or Most Recently Relevant to Health Maintenance Results * [facility] SCREENING DIGITAL (01/01/2024 7:52 AM EDT) Anatomical Region Laterality Modality Mammography 12/18/2023 10:3 9 AM EDT Narrative 01/01/2024 7:52 AM EDT [facility] Diagnostic Imaging Department [address] [place] [address] Patient: ??BI KUMAR ?/Age/Sex: 1955 Unit#: ??[id number] ? Location/Status: ??SPDIMAM/REG CLI ? Mnemonic/Ordering Site: ??DIGSC/SPMAM Ordering Physician: ??SANDY FUENTES MD [facility] Screening Digital - 12/18/23 - 1056 Report Status:Signed EXAM: [facility] Screening Digital EXAM DATE AND TIME: 12/18/2023 10:57 AM HISTORY: ??Annual screening COMPARISON: ??Priors unable to be obtained. TECHNIQUE: Bilateral digital breast tomosynthesis was performed in the CC and MLO projections. Computer aided detection with klinify 7.2-H and [employer] 3D 3.1 was employed. TISSUE DENSITY: b. [...] Procedure Note Digna Sesay MD - 01/10/2024 [facility] Diagnostic Imaging Department [address] [place] [address] Patient: BI KUMAR D.O.B./Age/Sex: 1955 - 68 - F Unit#: [id number] Location/Status: SPDIMAM/REG CLI Mnemonic/Ordering Site: DIGSC/SPMAM Ordering Physician: SANDY FUENTES MD [facility] Screening Digital - 12/18/23 105 Report Status:Signed EXAM: [facility] Screening Digital EXAM DATE AND TIME: 12/18/2023 10:57 AM HISTORY: Annual screening COMPARISON: Priors unable to be obtained. TECHNIQUE: Bilateral digital breast tomosynthesis was performed in the CCand MLO projections. Computer aided detection with klinify 7.2-H and[employer] 3D 3.1 was employed. TISSUE DENSITY: b. [...] by: DIGNA SESAY MD Dic Date/Time: 01/01/24 075 Sign date/Time: 01/01/24 075 Sandy Cintron MD IMG BI PROCEDURES Final R esult from Last 3 Months or Most Recently Relevant to Health Maintenance Insurance [employer] on file
--- OUTSIDE RECORDS SUMMARY | 2024-05-13 10:59 | XMS_ITS | Continuity of Care Document ---
Author Organization [facility] Address [address] [place] [address]- Care Team Providers Care Registered Nurse First Assistant Name Role Phone Polly FISH ROD MAKER, Solange Shaver Primary Care Physici an [place] [facility] [place] 04/29/24 [facility] [address] [place] [address]- Encounter Type: Triage Allergies, Adverse Reactions, Alerts [...] Refills, Maintenance, 04/06/24 12:26:00 PM EST, Tablet, [facility]/pharmacy #[id number], Partial fill upon patient request if [...] 6 Refills, Maintenance, 03/31/24 12:46:00 PM EST, [facility]/pharmacy #[id number], Partial fill upon patient request if [...] AM EST, Aerosol, Route to Pharmacy Electronically, [id number], [facility]/pharmacy #[id number], 163, cm, 04/03/24 11:09:00 EST, Height, 75, kg, 03/19/24 14:49:00 EST, Dry Weight Start Date: 04/03/24 Status: Ordered Quantity: 6.9 Unit: g Repeat number: 1 duloxetine 60 mg oral enteric coated capsule 1 capsule = 60 mg, By Mouth, Daily at bedtime, 90 capsule, 0 Refill(s) OTC, # 90 capsule, 3 Refills, Maintenance, 03/31/24 4:11:00 PM EST, Capsule, [facility]/pharmacy #[id number], Partial fill upon patient request if [...] PM EDT, 03/31/24 12:44:00 PM EST, Tablet, [facility]/pharmacy #[id number], Partial fill upon patient request if [...] 12:44:00 PM EST, Route to Pharmacy Electronically, [facility]/pharmacy #[id number], Partial fill upon patient request if [...] Refills, Maintenance, 03/31/24 12:44:00 PM EST, Tablet, [facility]/pharmacy #[id number], Partial fill upon patient request if [...] 8:07:00 AM EST, Route to Pharmacy Electronically, [facility]/pharmacy #[id number], 163, cm, 02/11/24 11:19:00 EST, Height, [...] Team Personnel Name: Solange Matias NP Position: [facility] PCO Associate Professional Member Role: PCP Address: [address] [place] [address] Telecom: Care Team Related Persons Name: BERNARDINO KUMAR Insurance Providers Guarantor name: BI KUMAR Health Plan Information #: 1 Payer: MICKEY Member Number: NA Policy Number: NA Group Number: NA
--- OUTSIDE RECORDS SUMMARY | 2024-05-13 10:59 | XMS_ITS ---
Author Organization [facility] Address [address] [place] [address] Phone Care Team Providers Care Career Development Coordinator Name Role Phone [facility] Unavailable [phone] Plan of Treatment No Plan of Treatment Recorded Assessments Includes: Assessments for all patient encounters No Assessments Recorded Medical Equipment - Implanted Devices Includes: Current and historical Devices No Medical Equipment Recorded Medications Includes: Current and historical Medications Current Medications (continue as prescribed) Tylenol Oral Tablet 05/13/2023 Provider: Diagnosis: Last Documented On 8:44AM By John Cee ; [facility] Medications Administered Includes: Administered Medications in patient's chart No Administered Medications Recorded Vital Signs Includes: Vital Signs from 05/14/2023 through 05/13/2024 Vital Name 07/24/2023 08:16A 06/10/2023 09: 01A Blood Pressure Sitting (mmHg) 125/78 120/64 Pulse Rate-Sitting (bpm) 72 76 Temp-Temporal 97 96.9 Height (in) 64 64 Weight (lb) 162 162 Body Mass Index 27.8 27.8 Body Surface Area 1.8 1.8 Oxygen Saturation (%) 99 97 Last Documented: On 07/24/2023 8:16AM ; [facility] On 06/10/2023 9:01AM ; [facility] Results Includes: Results from 05/14/2023 through 05/13/2024 No Results Recorded For Specified Dates History of Present Illness History of Present Illness not supported for this document type No History of Present Illness Recorded Social History No Social History Recorded - Smoking Status Unknown Procedures and Surgical History Includes: Procedures from 05/14/2023 through 05/13/2024 Procedures Code Diagnosis Performing Provider Service Location Service Date X-Ray Exam Of Ankle, minimum of 3 views (Right) [address]1675 Nondisp fx of lateral malleolus of right fibula, init [facility] Last Documented On 4 8:50AM ; [facility] X-Ray Exam Of Ankle, minimum of 3 views (Right) [address]2904 Nondisp fx of lateral malleolus of right fibula, init Ajay Rollins MD [facility] 06/10/2023 Last Documented On 4 8:10AM ; [facility] Medical History Includes: Medical History in patient's [...] Physical Exam Recorded Encounters Includes: Encounters from 05/14/2023 through 05/13/2024 Encounter Provider Location Date Check-In Time Check-Out Time Diagnosis Procedure Michelle ARITA [facility] 07/24/19 24 8:00AM 8:32AM Procedure Ajay Rollins MD [facility] 06/10/19 24 8:20AM 8:55AM Insurance Includes: Active Insurance Policies Plan Name Member ID Group # Subscriber Relationship Effect willis Dates 1 - Liliana Gutierrez [id number] Kelsy Webster Self 1 - Unknown Clinical Notes Includes: Signed Clinical Notes starting from 02/17/2022 * Progress note Date Encounter Last Documented by 07/24/2023 Procedure Last documented on 07/24/2023; 8:39 AM, Michelle ARITA; [facility] Physical Findings - Vitals taken 07/24/2023 08:16 am BP-Sitting 125/78 mmHg Pulse Rate-Sitting 72 bpm Temp-Temporal 97 F Height 64 in Weight 162 lbs Body Mass Index 27.8 kg/m2 Body Surface Area 1.8 m2 Oxygen Saturation 99 % Plan StartCited - Nondisp fx of lateral malleolus of right fibula, init Follow Up/Appointment: PRN In House X-Rays/X-Rays: Ankle, right, 3 views ([id number]) EndCited User Defined 4 Chief complaint: Follow-up [...] shoes. Caution to avoid reinjury. May take trmb-bvk-coovsmx analgesics as needed although not currently taking any. The patient may follow-up as needed. Patient and her understand and agree with the above-stated plan. This case has been discussed with Dr. Ferguson. * Progress note Date Encounter Last Documented by 06/10/2023 Procedure Last documented on 06/10/2023; 9:12 AM, Ajay Rollins MD; [facility], Physical Findings - Vitals taken 06/10/2023 09:01 [...]
--- OUTSIDE RECORDS SUMMARY | 2024-05-13 10:59 | XMS_ITS | Continuity of Care Document ---
Author Organization [facility] Address [address] [place] [address]- Care Team Providers Care Superintendent [employer] Name Role Phone Polly NAYLOR, Solange Shaver Primary Care Physici an [place] [facility] 04/29/24 [facility] [address] [place] [address]- Encounter Type: Triage Allergies, Adverse Reactions, Alerts [...] Refills, Maintenance, 04/06/24 12:26:00 PM EST, Tablet, [facility]/pharmacy #[id number], Partial fill upon patient request if [...] 6 Refills, Maintenance, 03/31/24 12:46:00 PM EST, [facility]/pharmacy #[id number], Partial fill upon patient request if [...] AM EST, Aerosol, Route to Pharmacy Electronically, [id number], [facility]/pharmacy #[id number], 163, cm, 04/03/24 11:09:00 EST, Height, 75, kg, 03/19/24 14:49:00 EST, Dry Weight Start Date: 04/03/24 Status: Ordered Quantity: 6.9 Unit: g Repeat number: 1 duloxetine 60 mg oral enteric coated capsule 1 capsule = 60 mg, By Mouth, Daily at bedtime, 90 capsule, 0 Refill(s) OTC, # 90 capsule, 3 Refills, Maintenance, 03/31/24 4:11:00 PM EST, Capsule, [facility]/pharmacy #[id number], Partial fill upon patient request if [...] PM EDT, 03/31/24 12:44:00 PM EST, Tablet, [facility]/pharmacy #[id number], Partial fill upon patient request if [...] 12:44:00 PM EST, Route to Pharmacy Electronically, [facility]/pharmacy #[id number], Partial fill upon patient request if [...] Refills, Maintenance, 03/31/24 12:44:00 PM EST, Tablet, [facility]/pharmacy #[id number], Partial fill upon patient request if [...] 8:07:00 AM EST, Route to Pharmacy Electronically, [facility]/pharmacy #[id number], 163, cm, 02/11/24 11:19:00 EST, Height, [...] Team Personnel Name: Solange Matias NP Position: [facility] PCO Associate Professional Member Role: PCP Address: [address] [place] [address] Telecom: Care Team Related Persons Name: BERNARDINO KUMAR Insurance Providers Guarantor name: BI KUMAR Health Plan Information #: 1 Payer: NA Member Number: NA Policy Number: NA Group Number: NA
--- OUTSIDE RECORDS SUMMARY | 2024-05-13 10:59 | XMS_ITS ---
Care Plan - [facility] Created on: May 13, 2024 Kelsy Webster : 1955 Sex: Female Author Organization [facility] RONALD Aguilar Address [address] [place] [address] Phone Care Team Providers Care Cable Repairer Name Role Phone [facility] Unavailable Unavailable
--- OUTSIDE RECORDS SUMMARY | 2024-05-13 10:59 | XMS_ITS | Continuity of Care Document ---
Author Organization [facility] Address [address] [place] [address]- Care Team Providers Care Test Center Administrator Name Role Phone Polly NAYLOR, Solange Shaver Primary Care Physici an Encounter [facility] ACCT R [id number] Date(s): 04/06/24 - 05/06/24 [facility] [address] [place] [address]- Encounter Type: Triage Allergies, Adverse Reactions, Alerts [...] 0 Refills, Maintenance, 12/28/23 12:31:00 AMEDT, Tablet, [facility]/pharmacy #[id number], Partial fill upon [...] Refills, Maintenance, 04/06/24 12:26:00 PM EST, Tablet, [facility]/pharmacy #[id number], Partial fill upon [...] 6 Refills, Maintenance, 03/31/24 12:46:00 PM EST, [facility]/pharmacy #[id number], Partial fill upon [...] AM EST, Aerosol, Route to Pharmacy Electronically, [id number], [facility]/pharmacy #[id number], 163, cm, 04/03/24 11:09:00 EST, Height, 75, kg, 03/19/24 14:49:00 EST, Dry Weight Start Date: 04/03/24 Status: Ordered Quantity: 6.9 Unit: g Repeat number: 1 duloxetine 60 mg oral enteric coated capsule 1 capsule = 60 mg, By Mouth, Daily at bedtime, 90 capsule, 0 Refill(s) OTC, # 90 capsule, 3 Refills, Maintenance, 03/31/24 4:11:00 PM EST, Capsule, [facility]/pharmacy #[id number], Partial fill upon [...] PM EDT, 03/31/24 12:44:00 PM EST, Tablet, [facility]/pharmacy #[id number], Partial fill upon [...] 12:44:00 PM EST, Route to Pharmacy Electronically, [facility]/pharmacy #[id number], Partial fill upon [...] Refills, Maintenance, 03/31/24 12:44:00 PM EST, Tablet, [facility]/pharmacy #[id number], Partial fill upon [...] 8:07:00 AM EST, Route to Pharmacy Electronically, [facility]/pharmacy #[id number], 163, cm, 02/11/24 [...] Team Personnel Name: Solange Matias NP Position: [facility] PCO Associate Professional Member Role: PCP Address: [address] [place] [address] Telecom: Care Team Related Persons Name: BERNARDINO KUMAR Insurance Providers Guarantor name: BI KUMAR Health Plan Information #: 1 Payer: NA Member Number: NA Policy Number: NA Group Number: NA
--- OUTSIDE RECORDS SUMMARY | 2024-05-13 10:59 | XMS_ITS | Continuity of Care Document ---
Author Organization [facility] Address [address] [place] [address]- Care Team Providers Care Acid Washer Operator Name Role Phone Polly NAYLOR, Solange Shaver Primary Care Physici an [place] [facility] [place] [facility] [address] [place] [address]- Encounter Type: Triage Allergies, Adverse Reactions, Alerts [...] 0 Refills, Maintenance, 12/28/23 12:31:00 AMEDT, Tablet, [facility]/pharmacy #[id number], Partial fill upon patient request [...] Refills, Maintenance, 04/06/24 12:26:00 PM EST, Tablet, [facility]/pharmacy #[id number], Partial fill upon patient request [...] 6 Refills, Maintenance, 03/31/24 12:46:00 PM EST, [facility]/pharmacy #[id number], Partial fill upon patient request [...] AM EST, Aerosol, Route to Pharmacy Electronically, [id number], [facility]/pharmacy #[id number], 163, cm, 04/03/24 11:09:00 EST, Height, 75, kg, 03/19/24 14:49:00 EST, Dry Weight Start Date: 04/03/24 Status: Ordered Quantity: 6.9 Unit: g Repeat number: 1 duloxetine 60 mg oral enteric coated capsule 1 capsule = 60 mg, By Mouth, Daily at bedtime, 90 capsule, 0 Refill(s) OTC, # 90 capsule, 3 Refills, Maintenance, 03/31/24 4:11:00 PM EST, Capsule, [facility]/pharmacy #[id number], Partial fill upon patient request [...] PM EDT, 03/31/24 12:44:00 PM EST, Tablet, [facility]/pharmacy #[id number], Partial fill upon patient request [...] 12:44:00 PM EST, Route to Pharmacy Electronically, [facility]/pharmacy #[id number], Partial fill upon patient request [...] Refills, Maintenance, 03/31/24 12:44:00 PM EST, Tablet, [facility]/pharmacy #[id number], Partial fill upon patient request [...] 8:07:00 AM EST, Route to Pharmacy Electronically, [facility]/pharmacy #[id number], 163, cm, 02/11/24 11:19:00 EST, [...] Team Personnel Name: Solange Matias NP Position: [facility] PCO Associate Professional Member Role: PCP Address: [address] [place] [address] Telecom: Care Team Related Persons Name: BERNARDINO KUMAR Insurance Providers Guarantor name: BI KUMAR Health Plan Information #: 1 Payer: NA Member Number: NA Policy Number: NA Group Number: NA
--- OUTSIDE RECORDS SUMMARY | 2024-05-13 10:59 | XMS_ITS | Continuity of Care Document ---
Author Organization [facility] Address [address] [place] [address]- Care Team Providers Care Leather Novelty Parts Cutter Name Role Phone Polly NAYLOR, Solange Shaver Primary Care Physici [id number]): 04/12[facility]24 - 04/19/24 [facility] [address] [place] [address]- Encounter Diagnosis Hematuria of unknown cause(Discharge Diagnosis) - 04/12/24 Attending Physician: Solange Matias NP Encounter Type: Office Visit Allergies, Adverse Reactions, Alerts Substance Criticality Severity Reaction Reaction Severity Status codeine VOMITING Active Singulair Active Compazine Active Medications Albuterol (Eqv-ProAir HFA) 90 mcg/inh inhalation aerosol 2 inhalation = 180 mcg, Inhalation, Every 6 hours, PRN as needed for shortness of breath or wheezing, # 18 Gm, 1 Refills, Maintenance, 03/31/24 12:47:00 PM EST, [facility]erosol, [id number], Partial fill upon patient request if the [...] 0 Refills, Maintenance, 12/28/23 12:31:00 AMEDT, Tablet, [id number], Partial fill upon [...] Refills, Maintenance, 04/06/24 12:26:00 PM EST, Tablet, [id number], Partial [...] 6 Refills, Maintenance, 03/31/24 12:46:00 PM EST, [facility][id number], Partial fill upon patient [...] AM EST, Aerosol, Route to Pharmacy Electronically, [id number], [facility][id number], 163, cm, 04/03/24 11:09:00 [...] 12:44:00 PM EST, Route to Pharmacy Electronically, [facility] #[id number], Partial fill upon patient [...] with mouth device. Unable to tolerate cpap Diagnosis Diagnosis Type Effective Dates Health Status Cl inical Service Informant Hematuria of unknown cause Discharge Diagnosis 04/12/24 Vital Signs Most recent to oldest [Reference Range]: 1 2 Height 163 cm (04/12/24 4:12 PM) 163 cm (04/12/24 4:11 PM) Oxygen Saturation [94-100 %] 98 % (04/12/24 4:11 PM) Pulse Rate [55-90 bpm] 68 bpm (04/12/24 4:11 PM) Blood Pressure [90-138/55-84 mm Hg] 121/ 75mm Hg (04/12/24 4:11 PM) Blood pressure sites Arm, right (04/12/24 4:11 PM) Social History Social History Type Response Smoking Status Never (less than 100 in lifetime) entered on: 10/27/23 Sex Sex Representation Female (finding) Note * Howard Marinelli: PERFORM Event Display: Patient Education/Instruction Authored Date: [id number] Ambulatory Adult [facility] Summary [facility] [address] Name: BI KUMAR : 1955?? Visit: 04/12/2024 15:40?? Ambulatory Visit Instructions ?? Your Care Team Primary Care Provider Solange Matias NP? This Visit Provider Solange Matias NP Your Diagnosis Hematuria of unknown cause Vitals Signs Pulse Rate: 68 bpm Height: 163 cm Systolic Blood Pressure: 121 mm Hg ?? Diastolic Blood Pressure: 75 mm Hg ?? Oxygen Saturation: 98 % ?? What to do next Scheduled Follow-Up Appointments Friday 9:20 AM EDT ?? With: Solange Matias NP Where: [address] [address]- Status: Pending 2024 10:45 AM EDT ?? With: Jerzy Wylie DO Where: [facility] [address] [place] [address]- Status: Pending Medications The list below reflects the information in our records and provided by you today along with any changes made during this visit. Please continue your medications until treatment is completed or stopped by your provider. If this is different from the information you have or there are other questions,please contact the prescribing provider. What How Much When Why Instructions Unchanged Acetaminophen (Tylenol Extra Strength) 2 tab(s) [...] EVERY 6 HOURS NEEDED (WHEEZING). ?? Unchanged apixaban (apixaban 5 mg oral tablet) 1 tab(s) Oral Twice a day Duration: 30 Days Unchanged Atorvastatin (atorvastatin 40 mg oral tablet) 1 tab(s) Oral Daily Unchanged Azelastine Ophthalmic (azelastine 0.05% ophthalmic solution) 1 Drops Both eyes Twice a day as needed for for allergy symptoms Unchanged Budesonide-Formoterol (budesonide-formoterol 80 mcg-4.5 mcg/ inh inhalation aerosol with adapter) 2 puff(s) Inhalation Twice a day Unchanged Duloxetine (duloxetine 60 mg oral enteric coated capsule) 1 capsule Oral Daily at Bedtime 90 capsule, 0 Refill(s) OTC ?? Unchanged Famciclovir (famciclovir 250 mg oral [...] tab(s) Oral Daily Unchanged Potassium Citrate Oral ?? What How Much When Why Comments Stop Taking Amoxicillin (amoxicillin 500 mg oral capsule) See instructions 1 capsule By Mouth 3 times a day Taken normally prior to Dental Work ?? Stop Taking Benzonatate (benzonatate 200 mg oral capsule) 1 capsule Oral 3 times a day as needed for as needed for cough Cough Duration: 7 Days Stop Taking Durable Medical Equipment (Aerochamber) See instructions always use with inhaler ?? Medications and Immunizations Administered Medications Given During Visit No medications given during this visit.?? Allergies (NKA means No Known Allergies) Compazine Singulair codeine??(VOMITING) Common Emergency Awareness Tips IS [...] are strongly encouraged to quit. Please call [facility] [employer] [employer] at [phone] or [phone] Lighting ([phone]) or log in to [email or web address] for referrals to smoking cessation programs. ?? The National Suicide Prevention Hotline is available 30/09 if you or someone you know needs to find a reason to keep living. By calling 8-559-407-Carebase (2705) you'll be connected to a skilled, trained counselor at a crisis center in your area. [facility] Portal You can view and manage your care through the patient portal or by using a health care jimy of your choosing. [employer] is a website that allows you to securely view your medical information including your hospital discharge summary, office visit summaries, medications and follow-up visits. You can also request appointments, renew medications, and request access to your medical information using a health care jimy of your choosing, or just ask a question. You can enroll at [email or web address] or register during your next office visit. [facility], in keeping with [facility] guidance, no longer requires face masks [...] primary care provider, you may find a [facility] provider by calling [facility] at [phone]. Patient Care team information Care Team Personnel Name: Solange Matias NP Position: [facility] PCO Associate Professional Member Role: PCP Address: [address] [place], [place] [address] Telecom: Care Team Related Persons Name: BERNARDINO KUMAR Insurance Providers Guarantor name: BI STACY Health Plan Information #: 1 Payer: NA Member Number: [id number] Policy Number: NA Group Number: [id number] Health Plan Information #: 2 Payer: NA Member Number: [id number] Policy Number: NA Group Number: [id number]
--- OUTSIDE RECORDS SUMMARY | 2024-05-13 10:59 | XMS_ITS | Clinical Summary ---
Author Organization [facility] Address [address] [place] [address] Phone Care Team Providers Care Vb Developer Name Role Phone [facility] Unavailable Unavailable Reason for Visit and Chief Complaint Procedure Plan of Treatment Pending Tests Order Diagnosis Results Due Ordering P andressa Follow Up - Appointment 1 Month Nondisp fx of lateral malleolus of right fibula, dona 06/10/23 Ajay Rollins MD Last Documented On 9:12AM ; [facility] Assessments Includes: Assessments from this encounter No Assessments Recorded Medical Equipment - Implanted Devices Includes: Current Devices No Medical Equipment Recorded Medications Includes: Medications discussed during this encounter and other current Medications Current Medications (continue as prescribed) Tylenol Oral Tablet 05/13/2023 Provider: Diagnosis: Last Documented On 8:44AM By John Cee ; [facility] Medications Administered Includes: Administered Medications from this encounter No Administered Medications Recorded Vital Signs Includes: Vital Signs from this encounter Vital Name 06/10/2023 09:01A Blood Pressure Sitting (mmHg) 120/64 Pulse Rate-Sitting (bpm) 76 Temp-Temporal 96.9 Height (in) 64 Weight (lb) 162 Body Mass Index 27.8 Body Surface Area 1.8 Oxygen Saturation (%) 97 Last Documented: On 06/10/2023 9:01AM ; [facility] Results Includes: Results discussed during this [...] Of Ankle, minimum of 3 views (Right) [address] Nondisp fx of lateral malleolus of right fibula, init Ajay Rollins MD [facility] 06/10/2023 Last Documented On 4 8:10AM ; [facility], Medical History Includes: Medical History addressed during [...] Check-Out Time Diagnosis Procedure Ajay Rollins MD [facility] 06/10/19 24 8:20AM 8:55AM Insurance Includes: Active Insurance Policies Plan Name Member ID Group # Subscriber Relationship Effect willis Dates - Liliana Gutierrez [id number] Kelsy Webster Self 1 - Unknown Clinical Notes Includes: Clinical Notes from this encounter * Progress note Date Encounter Last Documented by 06/10/2023 Procedure Last documented on 06/10/2023; 9:12 AM, Ajay Rollins MD; [facility], Physical Findings - Vitals taken 06/10/2023 09:01 [...]
== END ==
LOC: HO.SL 09:36
PROVIDERS: PCP Nurse Practitioner Family; Visit Provider Internal Medicine Pulmonary Disease
DX: G47.33 Obstructive sleep apnea (adult) (pediatric) (principal)
CPT/HCPCS: 95806

== ENCOUNTER → 2024-05-13 09:52 | Outpatient (BNV) | payer MEDICARE, SELFPAY | PROVIDERS: PCP Nurse Practitioner Family; Visit Provider Internal Medicine | DX: R06.83 Snoring (principal); G47.10 Hypersomnia, unspecified | CPT/HCPCS: 95806 ==

== ENCOUNTER 2024-05-27 10:26 | Outpatient (AMB) | payer OTHER, SELFPAY ==
[2024-05-27 10:31] VITALS: BP 108/70; PULSE 66; O2SAT 98; BMI 28.2
--- NOTE | 2024-05-27 10:31 | MHC.OFFVIS ---
Vital Signs 05/27/24 10:31 Height 5 ft 4.5 in Weight 167 lb BMI 28.2 BP 108/70 Blood Pressure Location Rt brachial Position Sitting Pulse 66 Pulse Source Doppler Pulse Oximetry (%) 98 Oxygen Delivery Method Room Air Comment Verbal weight - pt refused to get on the scale Intake Visit Reasons: Sleep apnea Allergies aspirin Allergy (Intermediate, Verified 03/30/24 10:52) Unknown montelukast [From Singulair] Allergy (Intermediate, Verified 03/30/24 10:52) Unknown NSAIDS (Non-Steroidal Anti-Inflamma Allergy (Intermediate, Verified 03/30/24 10:52) Canker Sores prochlorperazine [From Compazine] Allergy (Intermediate, Verified 03/30/24 10:42) Unknown cough syrup with codeine Allergy (Intermediate, Uncoded 03/30/24 10:42) Vomiting HPI HPI Sleep apnea: Details: 68-year-old lady, nonsmoker, with underlying history of obstructive sleep apnea diagnosed approximately 20 years prior and treated with a jaw advancement device, now presents for re-evaluation as patient states that she has gained approximately 20 lb since her last sleep study with worsening symptoms. She is also complain of partially treated bronchitic symptoms. 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 After the last office visit patient has completed her sleep study that showed no underlying obstructive sleep apnea. Her bronchitis symptoms also resolved after a course of Augmentin. [facility] Social History (Updated 03/30/24 @ 10:47 by Noreen Rico Chhaya) Patient Tobacco Use Status: Never used Tobacco Review of Systems Const Denies daytime sleepiness, Denies excessive sweating, Denies fatigue, Denies fever(s), Denies lethargy, Denies malaise, Denies night sweats, Denies snoring and Denies weight loss Eyes Denies blurry vision and Denies itchy eyes ENT Denies nasal congestion, Denies post nasal drip, Denies sinus pain, Denies sinus pressure and Denies other ( Thrush) Card Denies chest pain, Denies pedal edema, Denies dyspnea, Denies orthopnea and Denies paroxysmal nocturnal dyspnea Resp Denies cough, Denies hemoptysis, Denies excessive phlegm production, Denies dyspnea, Denies snoring and Denies wheezing GI Denies abdominal pain and Denies heartburn Musc Denies myalgias, Denies arthralgias and Denies joint swelling Skin/Breast Denies rash Neuro Denies memory loss and Denies seizure-like activity Psych Denies abnormal sleep pattern, Denies anxiety and Denies memory loss Endo Denies excessive sweating, Denies fatigue and Denies heat intolerance Santi/Lymph Denies easy bruising Aller/Immun Denies itchy eyes, Denies seasonal rhinorrhea and Denies wheezing Physical Exam Vital Signs: Last Vital Signs Pulse 66 05/27/24 10:31 BP 108/70 05/27/24 10:31 Pulse Ox 98 05/27/24 10:31 Oxygen Delivery Method Room Air 05/27/24 10:31 BMI result Body Mass Index 28.2 Const General: no acute distress and alert Nutritional Appearance: not obese Orientation/consciousness: Other orientation findings ( oriented) HEENT Head: Yes atraumatic Eyes General: appearance normal, both eyes and all related structures Sclerae: sclerae normal EOM: EOMs intact bilaterally Neck Neck: Yes supple Lymphatic: no lymphadenopathy noted Resp Effort & Inspection: normal respiratory effort and no use of accessory muscles Auscultation: clear to auscultation bilaterally Cardio Rate: regular rate Rhythm: regular rhythm Heart sounds: no gallops, no murmurs and no rubs Skin General skin exam: other ( warm) Extrem General: No clubbing, No cyanosis and No edema Assessment & Plan Assessment & Plan (1) RAFFI (obstructive sleep apnea): Code(s): G47.33 - Obstructive sleep apnea (adult) (pediatric) Category: Medical Plan: Results of sleep study reviewed, no underlying obstructive sleep apnea noted at this time. (2) Bronchitis: Code(s): J40 - Bronchitis, not specified as acute or chronic Category: Medical Plan: Resolved after a course of Augmentin. Coding Level of Care Code Est Pt Level 3 (33349) Diagnoses RAFFI (obstructive sleep apnea) G47.33 Bronchitis J40
--- OUTSIDE RECORDS SUMMARY | 2024-05-27 11:58 | XMS_ITS | Continuity of Care Document ---
Author Organization [facility] [employer] Address [address], [address] [place] [address]- Care Team Providers Care Mountain Or Glacier Guide Name Role Phone Polly LINUX ARCHITECT, Solange Shaver Primary Care Physici an Encounter [facility] Date(s): 04/15/24 - 05/15/24 [facility]O [employer] [facility] [address] [place], [place] [address] Encounter Type: Triage Allergies, Adverse Reactions, Alerts [...] 0 Refills, Maintenance, 12/28/23 12:31:00 AMEDT, Tablet, [facility]pharm[facility] #[id number], Partial fill upon patient request if [...] Refills, Maintenance, 04/06/24 12:26:00 PM EST, Tablet, [facility]pharm[facility] #[id number], Partial fill upon patient request if [...] 6 Refills, Maintenance, 03/31/24 12:46:00 PM EST, [facility]pharm[facility] #[id number], Partial fill upon patient request if [...] AM EST, Aerosol, Route to Pharmacy Electronically, [id number], [facility]pharm[facility] #[id number], 163, cm, 04/03/24 11:09:00 EST, Height, 75, kg, 03/19/24 14:49:00 EST, Dry Weight Start Date: 04/03/24 Status: Ordered Quantity: 6.9 Unit: g Repeat number: 1 duloxetine 60 mg oral enteric coated capsule 1 capsule = 60 mg, By Mouth, Daily at bedtime, 90 capsule, 0 Refill(s) OTC, # 90 capsule, 3 Refills, Maintenance, 03/31/24 4:11:00 PM EST, Capsule, [id number], Partial fill upon patient request [...] PM EDT, 03/31/24 12:44:00 PM EST, Tablet, [facility]pharm[facility] #[id number], Partial fill upon patient request if [...] Refills, Maintenance, 03/31/24 12:44:00 PM EST, Tablet, [facility]pharm[facility] #[id number], Partial fill upon patient request if [...] 8:07:00 AM EST, Route to Pharmacy Electronically, [facility]pharm[facility] #[id number], 163, cm, 02/11/24 11:19:00 EST, Height, [...] Team Personnel Name: Solange Matias NP Position: [facility] PCO Associate Professional Member Role: PCP Address: [address] [place] [address] Telecom: Care Team Related Persons Name: BERNARDINO KUMAR Insurance Providers Guarantor name: BI KUMAR Health Plan Information #: 1 Payer: NA Member Number: NA Policy Number: NA Group Number: NA
--- OUTSIDE RECORDS SUMMARY | 2024-05-27 11:58 | XMS_ITS | Clinical Summary ---
Author Organization [facility] Address [address] [place] [address] Care Team Providers Care Heating And Ventilating Drafter Name Role Phone Pcp, No Primary Care [...] age to complete this topic Care Teams Heating And Ventilating Drafter Relationship Specialty Start Date End Date Pcp, No PCP - General General Medicine 05/10/23
--- OUTSIDE RECORDS SUMMARY | 2024-05-27 11:58 | XMS_ITS ---
Author Name [facility] Organization Unknown Encounters Encounter Type Encounter Reason Primary Diagnosis Location Date Ambulatory [facility] 07/22/2023 Emergency Other fracture of upper and lower end of right fibula, initial encounter for closed fracture Other fracture of upper and lower end of right fibula, initial encounter for closed fracture [facility] 05/10/2023 Care Team Organization Name Specialty Phone Email Start Date End [facility] 07/08 [facility] NO PCP Primary Care 05/11/2023 [facility] 05/11/2023 05/26/2024 [facility] 05/11/2023
--- OUTSIDE RECORDS SUMMARY | 2024-05-27 11:59 | XMS_ITS ---
Author Organization [facility] Address [address] [place] [address] Phone Care Team Providers Care Hedge Fund Principal Name Role Phone [facility] Unavailable [phone] Plan of Treatment No Plan of Treatment Recorded Assessments Includes: Assessments for all patient encounters No Assessments Recorded Medical Equipment - Implanted Devices Includes: Current and historical Devices No Medical Equipment Recorded Medications Includes: Current and historical Medications Current Medications (continue as prescribed) Tylenol Oral Tablet 05/13/2023 Provider: Diagnosis: Last Documented On 8:44AM By John Cee ; [facility] Medications Administered Includes: Administered Medications in patient's chart No Administered Medications Recorded Vital Signs Includes: Vital Signs from 05/28/2023 through 05/27/2024 Vital Name 07/24/2023 08:16A 06/10/2023 09: 01A Blood Pressure Sitting (mmHg) 125/78 120/64 Pulse Rate-Sitting (bpm) 72 76 Temp-Temporal 97 96.9 Height (in) 64 64 Weight (lb) 162 162 Body Mass Index 27.8 27.8 Body Surface Area 1.8 1.8 Oxygen Saturation (%) 99 97 Last Documented: On 07/24/2023 8:16AM ; [facility] On 06/10/2023 9:01AM ; [facility] Results Includes: Results from 05/28/2023 through 05/27/2024 No Results Recorded For Specified Dates History of Present Illness History of Present Illness not supported for this document type No History of Present Illness Recorded Social History No Social History Recorded - Smoking Status Unknown Procedures and Surgical History Includes: Procedures from 05/28/2023 through 05/27/2024 Procedures Code Diagnosis Performing Provider Service Location Service Date X-Ray Exam Of Ankle, minimum of 3 views (Right) [address] Nondisp fx of lateral malleolus of right fibula, init [facility]chelle [facility] Last Documented On 4 8:50AM ; [facility] Of Ankle, minimum of 3 views (Right) [address] Nondisp fx of lateral malleolus of right fibula, init Ajay Rollins MD [facility] 06/10/2023 Last Documented On 4 8:10AM ; [facility] Medical History Includes: Medical History in [...] Physical Exam Recorded Encounters Includes: Encounters from 05/28/2023 through 05/27/2024 Encounter Provider Location Date Check-In Time Check-Out Time Diagnosis Procedure Michelle ARITA [facility] 07/24/19 24 8:00AM 8:32AM Procedure Ajay Rollins MD [facility] 06/10/19 24 8:20AM 8:55AM Insurance Includes: Active Insurance Policies Plan Name Member ID Group # Subscriber Relationship Effect willis Dates 1 - Liliana Gutierrez [id number] Kelsy Webster Self 1 - Unknown Clinical Notes Includes: Signed Clinical Notes starting from 02/17/2022 * Progress note Date Encounter Last Documented by 07/24/2023 Procedure Last documented on 07/24/2023; 8:39 AM, Michelle ARITA; [facility] Physical Findings - Vitals taken 07/24/2023 08:16 am BP-Sitting 125/78 mmHg Pulse Rate-Sitting 72 bpm Temp-Temporal 97 F Height 64 in Weight 162 lbs Body Mass Index 27.8 kg/m2 Body Surface Area 1.8 m2 Oxygen Saturation 99 % Plan StartCited - Nondisp fx of lateral malleolus of right fibula, init Follow Up/Appointment: PRN In House X-Rays/X-Rays: Ankle, right, 3 views ([id number]) EndCited User Defined 4 Chief complaint: Follow-up [...] shoes. Caution to avoid reinjury. May take fgrq-sct-ifsdwny analgesics as needed although not currently taking any. The patient may follow-up as needed. Patient and her understand and agree with the above-stated plan. This case has been discussed with Dr. Ferguson. * Progress note Date Encounter Last Documented by 06/10/2023 Procedure Last documented on 06/10/2023; 9:12 AM, Ajay Rollins MD; [facility], Physical Findings - Vitals taken 06/10/2023 09:01 [...]
--- OUTSIDE RECORDS SUMMARY | 2024-05-27 11:59 | XMS_ITS ---
Care Plan - [facility] Created on: May 27, 2024 Kelsy Webster : 1955 Sex: Female Author Organization [facility] RONALD Aguilar Address [address] [place] [address] Phone Care Team Providers Care Critical Care Nurse Specialist Name Role Phone [facility] Unavailable Unavailable
--- OUTSIDE RECORDS SUMMARY | 2024-05-27 11:59 | XMS_ITS | Clinical Summary ---
Author Organization [facility] RONALD Aguilra Address [address] [place] [address] Phone Care Team Providers Care Supervisor [place] Name Role Phone [facility] Unavailable Unavailable Reason for [...] - Last Documented On 05/13/2023 1:48PM ; [facility] Pending Tests Order Diagnosis Results Due Ordering Susie crisostomo Follow Up - Appointment 1 Month Nondisp fx of lateral malleolus of right fibula, init 05/13/23 Adalberto Joseph MD Last Documented On 4 1:48PM ; [facility] Assessments Includes: Assessments from this encounter No Assessments Recorded Medical Equipment - Implanted Devices Includes: Current Devices No Medical Equipment Recorded Medications Includes: Medications discussed during this encounter and other current Medications Current Medications (continue as prescribed) Tylenol Oral Tablet 05/13/2023 Provider: Diagnosis: Last Documented On 4 8:44AM By Jhon Cee ; [facility] Medications Administered Includes: Administered Medications from this encounter No Administered Medications Recorded Vital Signs Includes: Vital Signs from this encounter Vital Name 05/13/2023 08:43A Blood Pressure Sitting (mmHg) 122/70 Pulse Rate-Sitting (bpm) 72 Temp-Temporal 97 Height (in) 64 Weight (lb) 162 Body Mass Index 27.8 Body Surface Area 1.8 Oxygen Saturation (%) 99 Last Documented: On 05/13/2023 8:43AM ; [facility], Results Includes: Results discussed during this encounter [...] Diagnosis Medicare New Patient [facility]berto [facility] 05/13/19 24 8:00AM 9:29AM Insurance Includes: Active Insurance Policies Plan Name Member ID Group # Subscriber Relationship Effect willis Dates 1 - [employer] [id number] Kelsy Webster Self 1 - Unknown Clinical Notes Includes: Clinical Notes from this encounter * Progress note Date Encounter Last Documented by 05/13/2023 Medicare New Patient Last docume nted on 05/13/2023; 1:48 PM, Adalberto Joseph MD; [facility] Chief Complaint Closed nondisplaced distal right fibula [...]
--- OUTSIDE RECORDS SUMMARY | 2024-05-27 11:59 | XMS_ITS | Continuity of Care Document ---
Author Organization [facility] [employer] Address [address], [address] [place] [address]- Care Team Providers Care Education Department Registrar Name Role Phone Polly RECOVERY COLLECTOR, Solange Shaver Primary Care Physici an Encounter [facility] [place] Date(s): 04/19/24 - 05/19/24 [facility] [employer] [address] [place], [place] [address] Encounter Type: Triage Allergies, Adverse Reactions, [...] 0 Refills, Maintenance, 12/28/23 12:31:00 AMEDT, Tablet, [facility]/pharmacy #[id number], Partial fill upon [...] AM EST, Aerosol, Route to Pharmacy Electronically, [id number], [facility]/pharmacy #[id number], 163, cm, 04/03/24 11:09:00 [...] Team Personnel Name: Solange Matias NP Position: [facility] PCO Associate Professional Member Role: PCP Address: [address] [place] [address] Telecom: Care Team Related Persons Name: BERNARDINO KUMAR Insurance Providers Guarantor name: BI STACY Health Plan Information #: 1 Payer: NA Member Number: NA Policy Number: NA Group Number: NA
--- OUTSIDE RECORDS SUMMARY | 2024-05-27 11:59 | XMS_ITS | Clinical Summary ---
Author Organization [facility] Address [address] [place] [address] Phone Care Team Providers Care Pelt Shearer Name Role Phone [facility] Unavailable [phone] Reason for Visit and Chief Complaint Procedure Plan of Treatment Pending Tests Order Diagnosis Results Due Ordering P rovider Follow Up - Appointment PRN Nondisp fx of lateral malleolus of right fibula, init 07/24/23 Michelle ARITA Last Documented On 4 8:39AM ; [facility] In House X-Rays - X-Rays Ankle, right, 3 views ([id number]) Nondisp fx of lateral malleolus of right fibula, init 07/26/23 Michelle ARITA Last Documented On 4 8:39AM ; [facility] Assessments Includes: Assessments from this encounter No Assessments Recorded Medical Equipment - Implanted Devices Includes: Current Devices No Medical Equipment Recorded Medications Includes: Medications discussed during this encounter and other current Medications Current Medications (continue as prescribed) Tylenol Oral Tablet 05/13/2023 Provider: Diagnosis: Last Documented On 4 8:44AM By John Cee ; [facility] Medications Administered Includes: Administered Medications from this encounter No Administered Medications Recorded Vital Signs Includes: Vital Signs from this encounter Vital Name 07/24/2023 08:16A Blood Pressure Sitting (mmHg) 125/78 Pulse Rate-Sitting (bpm) 72 Temp-Temporal 97 Height (in) 64 Weight (lb) 162 Body Mass Index 27.8 Body Surface Area 1.8 Oxygen Saturation (%) 99 Last Documented: On 07/24/2023 8:16AM ; [facility] Results Includes: Results discussed during this encounter [...] Of Ankle, minimum of 3 views (Right) [id number] Nondisp fx of lateral malleolus of right fibula, init Michelle ARITA [facility] 07/24/2023 Last Documented On 4 8:50AM ; [facility] Medical History Includes: Medical History addressed during [...] shoes. Caution to avoid reinjury. May take [id number] analgesics as needed although not currently taking [...] Time Check-Out Time Diagnosis Procedure Michelle ARITA [facility] 8:00AM 8:32AM Insurance Includes: Active Insurance Policies Plan Name Member ID Group # Subscriber Relationship Effect willis Dates 1 - Liliana Gutierrez [id number] Kelsy Webster Self 1 - Unknown Clinical Notes Includes: Clinical Notes from this encounter * Progress note Date Encounter Last Documented by 07/24/2023 Procedure Last documented on 07/24/2023; 8:39 AM, Michelle ARITA; [facility] Physical Findings - Vitals taken 07/24/2023 08:16 am BP-Sitting 125/78 mmHg Pulse Rate-Sitting 72 bpm Temp-Temporal 97 F Height 64 in Weight 162 lbs Body Mass Index 27.8 kg/m2 Body Surface Area 1.8 m2 Oxygen Saturation 99 % Plan StartCited - Nondisp fx of lateral malleolus of right fibula, init Follow Up/Appointment: PRN In House X-Rays/X-Rays: Ankle, right, 3 views ([id number]) EndCited User Defined 4 Chief complaint: Follow-up [...] shoes. Caution to avoid reinjury. May take epdx-bfk-bmfelnt analgesics as needed although not currently taking any. The patient may follow-up as needed. Patient and her understand and agree with the above-stated plan. This case has been discussed with Dr. Ferguson.
--- OUTSIDE RECORDS SUMMARY | 2024-05-27 11:59 | XMS_ITS | Clinical Summary ---
Author Organization [facility] Address [address] [place] [address] Phone Care Team Providers Care Rag Production Worker Name Role Phone [facility] Unavailable Unavailable Reason for Visit and Chief Complaint Procedure Plan of Treatment Pending Tests Order Diagnosis Results Due Ordering P andressa Follow Up - Appointment 1 Month Nondisp fx of lateral malleolus of right fibula, dona 06/10/23 Ajay Rollins MD Last Documented On 9:12AM ; [facility] Assessments Includes: Assessments from this encounter No Assessments Recorded Medical Equipment - Implanted Devices Includes: Current Devices No Medical Equipment Recorded Medications Includes: Medications discussed during this encounter and other current Medications Current Medications (continue as prescribed) Tylenol Oral Tablet 05/13/2023 Provider: Diagnosis: Last Documented On 4 8:44AM By John Cee ; [facility] Medications Administered Includes: Administered Medications from this encounter No Administered Medications Recorded Vital Signs Includes: Vital Signs from this encounter Vital Name 06/10/2023 09:01A Blood Pressure Sitting (mmHg) 120/64 Pulse Rate-Sitting (bpm) 76 Temp-Temporal 96.9 Height (in) 64 Weight (lb) 162 Body Mass Index 27.8 Body Surface Area 1.8 Oxygen Saturation (%) 97 Last Documented: On 06/10/2023 9:01AM ; [facility] Results Includes: Results discussed during this [...] Of Ankle, minimum of 3 views (Right) [id number] Nondisp fx of lateral malleolus of right fibula, init Ajay Rollins MD [facility] 06/10/2023 Last Documented On 4 8:10AM ; [facility], Medical History Includes: Medical History addressed [...] Check-Out Time Diagnosis Procedure Ajay Rollins MD [facility] 06/10/19 24 8:20AM 8:55AM Insurance Includes: Active Insurance Policies Plan Name Member ID Group # Subscriber Relationship Effect willis Dates - Liliana Gutierrez [id number] Kelsy Webster Self 1 - Unknown Clinical Notes Includes: Clinical Notes from this encounter * Progress note Date Encounter Last Documented by 06/10/2023 Procedure Last documented on 06/10/2023; 9:12 AM, Ajay Rollins MD; [facility], Physical Findings - Vitals taken 06/10/2023 09:01 [...] COMPLAINT Closed nondisplaced distal right fibula fracture (Hcen A) HISTORY OF PRESENT ILLNESS The patient [...]
--- OUTSIDE RECORDS SUMMARY | 2024-05-27 11:59 | XMS_ITS | Encounter Summary ---
Author Organization [facility] [address] Care Team Providers Care Correctional Therapy Teacher Name Role Phone Unavailable Primary Care Provider Unavailabl e Encounter Details Date Type Department Care Team (Late st Contact Info) Description 05/21/2024 Lab Requisition [facility] - Main Lab [address] [facility] [place] [id number] Eliot Bob MD [address] [place] [address] Gross hematuria Social History Tobacco Use Types Packs/Day Years Used Date Smoking Tobacco: Never Smokeless Tobacco: Never Alcohol Use Standard Drinks/Week Comments Yes 0 (1 standard drink = 0.6 oz pur e alcohol) Comments No Sex and Gender Information Value Date Recorded Sex Assigned at Not on file Legal Sex Female 11:07 AM EDT Gender Identity Not on file Sexual Orientation Not on file documented as of this encounter Plan of Treatment Not on file documented as of this encounter Procedures Procedure Name Priority Date/Time Associated Diagnosis Comments AP OUTSIDE CONSULT Routine 05/18/2024 12 :00 AM EDT Gross hematuria documented in this encounter Results * Anatomic pathology outside consult (05/18/2024 12:00 AM EDT) Final Diagnosis A. Urine, Voided, ([id number]): -FEW ATYPICAL UROTHELIAL CELLS. Results of UroVysion fluorescence in situ hybridization (FISH) testing: CEP3: Normal CEP7: Normal CEP17: Normal LSI 9p21: Normal Interpretation: Normal profile Controls stained appropriately. Note: The results are intended as a screening device and should be interpreted in association with other clinical and pathological findings. 05/26/2024 4:28 PM EDT [facility] Clinical Information Gross hematuria R31.0 Urine Cytology/FISH (now) 05/26/2024 4:28 PM EDT [facility] Gross Description A. Urine, Voided, ([id number]): Received one ThinPrep slide for cytology and one ThinPrep slide for UroVysion FISH 05/26/2024 4:28 PM EDT [facility] Disclaimer Unless otherwise specified, all tissue is 10% NB formalin fixed and paraffin embedded. Technical pathology services provided by [facility] at [address], [place] [address] (CLIA #[id number]/Namrata Berry MD, Workers Compensation Specialist) 05/26/2024 4:28 PM EDT [facility] Tissue Urine specimen from urethra / Unknown 05/18/2024 05/21/2024 1:39 PM EDT us Eliot Bob MD LAB PATHOLOGY ORDERAB LES Final Result [facility] [address] [place] [address], documented in this encounter Visit Diagnoses Diagnosis Gross hematuria documented in this encounter
--- OUTSIDE RECORDS SUMMARY | 2024-05-27 11:59 | XMS_ITS | Clinical Summary ---
Author Organization [facility] [address] [facility] [address] Address [address] [place] [address] Phone Care Team Providers Care Lawn Technician Name Role Phone Unavailable Primary Care Provider [...] (three) times a day. 30 g 2 4 Active Active Problems Problem Noted Date Diagnosed Date History of cardiac radiofrequency ablation 02/05 Arthritis 03/19/2023 Fibromyalgia 03/19/2023 Hypoglycemia 03/19/2023 Hypothyroidism 03/19/2023 Raynaud's disease 03/19/2023 Encounters Date Type Department Care Team Description 05/21/2024 Lab Requisition [facility] - Main Lab [address] [facility] [place] [phone] Eliot Bob MD Gross hematuria 02/27/2024 9:00 AM EST Consult Orthoped[facility] [address] [address] Josse Rodríguez PA Primary osteoarthritis of both [...] ADHESIONS ; Surgeon: Pardeep Denney MD; Location: [facility]; Service: Bariatric; Laterality: N/A; TOTAL HIP ARTHROPLASTY Left PROCEDURE: TOTAL HIP ARTHROPLASTY OTHER SURGICAL HISTORY PROCEDURE: UT LAPS GSTR RSTCV PX W/BYP ERIC-EN-Y LIMB <150 CM HIP ARTHROPLASTY Bilateral PROCEDURE: HISTORICAL HIP REPLACEMENT OTHER SURGICAL HISTORY PROCEDURE: UT GASTRIC RSTCV W/O BYP VERTICAL-BANDED GASTROPLY OTHER SURGICAL HISTORY PROCEDURE: UT LIG/TRNSXJ FLP TUBE ABDL/VAG APPR UNI/BI Medical [...] 10/23/2023, 09/01/2023, 10/02/2022 Breast Cancer Screening 12/31/2025 01/01/20 24, 04/06/2019 RSV Immunization Patients 60 + Years [...] 05/18/2024 12 :00 AM EDT Gross hematuria EDNA SCREENING DIGITAL Routine 01/01/2024 7:52 AM EDT Encounter for screening mammogram for malignant neoplasm of breast from Last 3 Months or Most Recently Relevant to Health Maintenance Results * Anatomic pathology outside consult (05/18/2024 12:00 AM EDT) Final Diagnosis A. Urine, Voided, ([id number]): -FEW ATYPICAL UROTHELIAL CELLS. Results of UroVysion fluorescence in situ hybridization (FISH) testing: CEP3: Normal CEP7: Normal CEP17: Normal LSI 9p21: Normal Interpretation: Normal profile Controls stained appropriately. Note: The results are intended as a screening device and should be interpreted in association with other clinical and pathological findings. 05/26/2024 4:28 PM EDT BÁRBARA FLYNN [place] ([facility]) [facility] Clinical Information Gross hematuria R31.0 Urine Cytology/FISH (now) 05/26/2024 4:28 PM EDT [facility] Gross Description A. Urine, Voided, ([id number]): Received one ThinPrep slide for cytology and one ThinPrep slide for UroVysion FISH 05/26/2024 4:28 PM EDT [facility] Disclaimer Unless otherwise specified, all tissue is 10% NB formalin fixed and paraffin embedded. Technical pathology services provided by [facility] at [address], [place] [address] (CLIA #[id number]/Namrata Berry MD, Customer Consulting Manager) 05/26/2024 4:28 PM EDT [facility] Tissue Urine specimen from urethra / Unknown 05/18/2024 05/21/2024 1:39 PM EDT us Eliot Bob MD LAB PATHOLOGY ORDERAB LES Final Result [facility]) [facility] [address] [place] [address], * EDNA SCREENING DIGITAL (01/01/2024 7:52 AM EDT) Anatomical Region Laterality Modality Mammography 12/18/2023 10:3 9 AM EDT Narrative 01/01/2024 7:52 AM EDT [facility] Diagnostic Imaging Department [address] [place] [address] Patient: ??BI KUMAR ?/Age/Sex: 1955 - - F Unit#: ??[id number] ? Location/Status: ??SPDIMAM/REG CLI ? Mnemonic/Ordering Site: ??DIGSC/SPMAM Ordering Physician: ??SANDY FUENTES MD [facility] Screening Digital - 12/18/23 - 1056 Report Status:Signed EXAM: [facility] Screening Digital EXAM DATE AND TIME: 12/18/2023 10:57 AM HISTORY: ??Annual screening COMPARISON: ??Priors unable to be obtained. TECHNIQUE: Bilateral digital breast tomosynthesis was performed in the CC and MLO projections. Computer aided detection with [employer] 7.2-H and [employer] 3D 3.1 was employed. TISSUE DENSITY: b. [...] by: ??DIGNA SESAY MD Dic Date/Time: ??01/01/24 075 Sign date/Time: ??01/01/24 0752 Procedure Note Digna Sesay MD - 01/10/2024 [facility] Diagnostic Imaging Department [address] [place] [address] Patient: STACYBI /Age/Sex: 1955 - 68 - F Unit#: [id number] Location/Status: SPDIMAM/REG CLI Mnemonic/Ordering Site: [facility] Ordering Physician: SANDY FUENTES MD [facility] Screening Digital - 12/18/23 - 1056 Report Status:Signed EXAM: [facility] Screening Digital EXAM DATE AND TIME: 12/18/2023 10:57 AM HISTORY: Annual screening COMPARISON: Priors unable to be obtained. TECHNIQUE: Bilateral digital breast tomosynthesis was performed in the CCand MLO projections. Computer aided detection with [employer] 7.2-H and[employer] 3D 3.1 was employed. TISSUE DENSITY: b. [...] MD Dic Date/Time: 01/01/24 075 Sign date/Time: 01/01/24751 Sandy Cintron MD IMG BI PROCEDURES Final R esult from Last 3 Months or Most Recently Relevant to Health Maintenance Insurance [facility] MEDICARE ADVANTAGE on file
== END 2024-05-27 10:46 | disposition home or self-care (01) ==
LOC: HO.HPS 10:27
PROVIDERS: PCP Nurse Practitioner Family; Visit Provider Internal Medicine Pulmonary Disease
DX: G47.33 Obstructive sleep apnea (adult) (pediatric) (principal); J40 Bronchitis, not specified as acute or chronic
CPT/HCPCS: 99213